=== PATIENT | male | born 1975 | race Caucasian/White ===

== ENCOUNTER 2017-01-24 13:30 | Emergency (ER) | payer BC, OTHER ==
[~2017-01-24] VITALS: Ht 175.3 cm; Wt 97.5 kg
[~2017-01-24 13:30] MED LIST: AMLO1CAP4 PO; ASP81CT PO; MECL-124 PO; MULT-963 PO; OMEP20TA2 PO; ONDAN4ODT PO; PIOG1TAB2 PO; SCOP1PAT TD
--- NOTE | 2017-01-24 13:45 | ED General ---
General Chief Complaint: Dizziness/Syncope Stated Complaint: DIZZINESS Source of Information: Patient, EMS Exam Limitations: No Limitations History of Present Illness Time Seen by Provider: 13:43 Initial Comments To ER per EMS from work with reports of dizziness. 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 States that he inspected and home at the [facility] then went back to his office. While his office looking at his computer screen he felt slightly dizzy. He then stood up and felt even dizzier. He then turned off the lights and lay on the floor in his office without improvement and persistent dizziness. He has a history of this and has taken scopolamine patches and meclizine orally in the past. He is dizzy all the time even at rest. He did have a headache this morning for which he took Tylenol Timing/Duration: 4-6 Hours Severity: Moderate Allergies and Home Medications Allergies Coded Allergies: No Known Drug Allergies (Unverified , 06/08/12) Home Medications Amlodipine Besylate/Benazepril 1 Cap Capsule, 1 EACH PO DAILY, (Reported) Aspirin 81 Mg Chew, 81 MG PO DAILY, (Reported) Meclizine Hcl 25 Mg Tab, 1-2 TAB PO Q 4-6 HOURS PRN, #30 FOR DIZZINESS Prescribed by: MARIE GONZALES on 06/09/1241 Multivitamin 1 Each Tablet, 1 EACH PO DAILY, (Reported) Omeprazole 20 Mg Tablet.dr, 20 MG PO DAILY, (Reported) Ondansetron Hcl 4 Mg Tab, 4 MG PO Q4H, #5 FOR NAUSEA AND VOMITING Prescribed by: MARIE GONZALES on 06/09/1241 Pioglitazone Hcl/Metformin Hcl 1 Each Tablet, 1 EACH PO DAILY, (Reported) Scopolamine Hcl 1 Patch .72 H Patch.td72, 1 EA TD Q3D, #3 FOR DIZZINESS Prescribed by: MARIE GONZALES on 06/09/1241 Constitutional: see HPI EENTM: see HPI Respiratory: no symptoms reported Cardiovascular: no symptoms reported Genitourinary: no symptoms reported Musculoskeletal: no symptoms reported Skin: no symptoms reported Psychiatric/Neurological: No Symptoms Reported Hematologic/Lymphatic: No Symptoms Reported Immunological/Allergic: no symptoms reported Past Wvybrbk-[id number] Hx Patient Social History Recent Foreign Travel: No Contact w/Someone Who Travel: No Immunizations Up To Date Date of Pneumonia Vaccine: May 25, 2010 Date of Influenza Vaccine: May 25, 2012 Physical Exam Vital Signs Vital Sign - Last 12Hours 01/24/17 13:30 Temp 98.3 Pulse 96 Resp 16 B/P (MAP) 127/73 Pulse Ox 99 O2 Delivery Room Air Capillary Refill : General Appearance: No Apparent Distress, WD/WN, Anxious Eyes: Bilateral Eye EOMI, Bilateral Eye Normal Inspection, Bilateral Eye PERRL HEENT: PERRL/EOMI, TMs Normal Neck: Full Range of Motion, Normal Inspection Respiratory: No Accessory Muscle Use, No Respiratory Distress Cardiovascular: Regular Rate, Rhythm, Normal Peripheral Pulses Gastrointestinal: Normal Bowel Sounds, Non Tender, Soft Extremity: Normal Capillary Refill, Normal Inspection Neurologic/Psychiatric: Alert, Oriented x3, No Motor/Sensory Deficits Skin: Normal Color, Warm/Dry Progress/Results/Core Measures Results/Orders Lab Results Laboratory Tests Test 01/24/17 13:50 Range/Units White Blood Count 7.7 4.3-11.0 10^3/uL Red Blood Count 5.02 4.35-5.85 10^6/uL Hemoglobin 15.5 13.3-17.7 G/DL Hematocrit 45 40-54 % Mean Corpuscular Volume 89 80-99 FL Mean Corpuscular Hemoglobin 31 25-34 PG Mean Corpuscular Hemoglobin Concent 35 32-36 G/DL Red Cell Distribution Width 12.1 10.0-14.5 % Platelet Count 254 130-400 10^3/uL Mean Platelet Volume 10.7 H 7.4-10.4 FL Neutrophils (%) (Auto) 63 42-75 % Lymphocytes (%) (Auto) 25 12-44 % Monocytes (%) (Auto) 10 0-12 % Eosinophils (%) (Auto) 1 0-10 % Basophils (%) (Auto) 0 0-10 % Neutrophils # (Auto) 4.9 1.8-7.8 X 10^3 Lymphocytes # (Auto) 1.9 1.0-4.0 X 10^3 Monocytes # (Auto) 0.8 0.0-1.0 X 10^3 Eosinophils # (Auto) 0.1 0.0-0.3 10^3/uL Basophils # (Auto) 0.0 0.0-0.1 10^3/uL Sodium Level 138 135-145 MMOL/L Potassium Level 4.2 3.6-5.0 MMOL/L Chloride Level 103 98-107 MMOL/L Carbon Dioxide Level 24 21-32 MMOL/L Anion Gap 11 5-14 MMOL/L Blood Urea Nitrogen 17 7-18 MG/DL Creatinine 0.91 0.60-1.30 MG/DL Estimat Glomerular Filtration Rate > 60 BUN/Creatinine Ratio 19 Glucose Level 146 H 70-105 MG/DL Calcium Level 9.4 8.5-10.1 MG/DL Total Bilirubin 1.0 0.1-1.0 MG/DL Aspartate Amino Transf (AST/SGOT) 33 5-34 U/L Alanine Aminotransferase (ALT/SGPT) 53 0-55 U/L Alkaline Phosphatase 36 L 40-136 U/L Total Protein 7.1 6.4-8.2 G/DL Albumin 4.2 3.2-4.5 G/DL My Orders Orders - CHASTITY TEIXEIRA APRN Ct Angio Head/Neck (01/24/17 13:39) Ekg Tracing (01/24/17 13:39) Cbc With Automated Diff (01/24/17 13:39) Comprehensive Metabolic Panel (01/24/17 13:39) Saline Lock/Iv-Start (01/24/17 13:39) Promethazine Injection (Phenergan Injec (01/24/17 13:45) Lorazepam Injection (Ativan Injection) (01/24/17 13:45) Meclizine Tablet (Antivert Tablet) (01/24/17 13:45) Iohexol Injection (Omnipaque 350 Mg/Ml 1 (01/24/17 14:30) Ns (Ivpb) (Sodium Chloride 0.9% Ivpb Bag (01/24/17 14:30) Medications Given in ED Current Medications Medications Dose Ordered Sig/Christin Route Start Time Stop Time Status Last Admin Dose Admin Iohexol 100 ml ONCE ONCE IV 01/24/17 14:30 01/24/17 14:31 DC 01/24/17 14:32 85 ML Lorazepam 0.5 mg ONCE ONCE IVP 01/24/17 13:45 01/24/17 13:46 DC 01/24/17 13:57 0.5 MG Meclizine HCl 25 mg ONCE ONCE PO 01/24/17 13:45 01/24/17 13:46 DC 01/24/17 13:57 25 MG Sodium Chloride 100 ml ONCE ONCE IV 01/24/17 14:30 01/24/17 14:31 DC 01/24/17 14:33 80 ML Vital Signs/I&O Vital Sign - Last 12Hours 01/24/17 13:30 Temp 98.3 Pulse 96 Resp 16 B/P (MAP) 127/73 Pulse Ox 99 O2 Delivery Room Air Departure Communication Progress Notes 1536-dizziness is still present but is much better. CT angiogram is negative. We will discharged home. Impression Impression: Primary Impression: Vertigo Disposition: HOME, SELF-CARE Condition: Stable Departure-Patient Inst. Decision time for Depature: 15:36 Referrals: ROSEMARIE UMANZOR MD, MARK D MD (PCP/Family) Primary Care Physician Patient Instructions: Vertigo (a Type of Dizziness) (DC) Add. Discharge Instructions: 1. Change positions slowly and expect to be dizzy with movement 2. Go home and rest 3. Call Dr. Umanzor on Friday morning to make an appointment to be seen All discharge instructions reviewed with patient and/or family. Voiced understanding. Scripts Promethazine HCl (Promethazine Tablet) 25 Mg Tablet 25 MG PO Q8H Y for NAUSEA/VOMITING, #10 TAB Prov: CHASTITY TEIXEIRA APRN 01/24/17 Scopolamine (Transderm-Scop) 1 Each Patch.td72 1 EACH TD q72 hours, #10 PATCH Prov: CHASTITY TEIXEIRA APRN 01/24/17 Meclizine HCl (Meclizine HCl) 25 Mg Tablet 25 MG PO TID Y for DIZZINESS, #10 TAB Prov: CHASTITY TEIXEIRA APRN 01/24/17 CHASTITY TEIXEIRA APRN Jan 24, 2017 13:45
[2017-01-24] MEDS: LORazepam INJ 2 MG/ML (ATIVAN) VIAL IVP ONE (13:57)
[2017-01-24] MEDS: MECLIZINE 25 MG (ANTIVERT) TAB PO ONE (13:57)
[2017-01-24 13:59] LABS: BASOPHILS % (AUTO) 0 % (0-10); EOSINOPHILS # (AUTO) 0.1 10^3/uL (0.0-0.3); EOSINOPHILS % (AUTO) 1 % (0-10); LYMPHOCYTES # (AUTO) 1.9 X 10^3 (1.0-4.0); LYMPHOCYTES % (AUTO) 25 % (12-44); MEAN CORPUSCULAR HEMOGLOBIN 31 PG (25-34); MEAN CORPUSCULAR HGB CONC 35 G/DL (32-36); MEAN CORPUSCULAR VOLUME 89 FL (80-99); MEAN PLATELET VOLUME 10.7 FL (7.4-10.4); MONOCYTES # (AUTO) 0.8 X 10^3 (0.0-1.0); MONOCYTES % (AUTO) 10 % (0-12); NEUTROPHILS # (AUTO) 4.9 X 10^3 (1.8-7.8); NEUTROPHILS % (AUTO) 63 % (42-75); PLATELET COUNT 254 10^3/uL (130-400); RED BLOOD COUNT 5.02 10^6/uL (4.35-5.85); RED CELL DISTRIBUTION WIDTH 12.1 % (10.0-14.5); WHITE BLOOD COUNT 7.7 10^3/uL (4.3-11.0)
[2017-01-24 14:29] LABS: ALANINE AMINOTRANSFERASE 53 U/L (0-55); ALBUMIN 4.2 G/DL (3.2-4.5); ANION GAP 11 MMOL/L (5-14); ASPARTATE AMINO TRANSFERASE 33 U/L (5-34); BLOOD UREA NITROGEN 17 MG/DL (7-18); BUN/CREATININE RATIO 19; CALCIUM 9.4 MG/DL (8.5-10.1); CARBON DIOXIDE 24 MMOL/L (21-32); CHLORIDE 103 MMOL/L (98-107); CREATININE SERUM 0.91 MG/DL (0.60-1.30); GFR ESTIMATED > 60; GLUCOSE 146 MG/DL (70-105); POTASSIUM 4.2 MMOL/L (3.6-5.0); SODIUM 138 MMOL/L (135-145); TOTAL PROTEIN 7.1 G/DL (6.4-8.2)
[2017-01-24] MEDS: IOHEXOL 350 MG/ML 100 ML (OMNIPAQUE 350) VIAL IV ONE (14:32)
[2017-01-24] MEDS: NS 100 ML (IVPB) BAG IV ONE (14:33)
--- NOTE | 2017-01-24 15:21 | Diagnostic Imaging Report ---
CLINICAL INDICATION: Patient with dizziness, vomiting x1 day. EXAMS: 1: Head CT with and without IV contrast. 2: CT angiogram of the head and neck performed with 100 cc of Omnipaque 350 IV contrast. Sagittal and coronal MIP reformations were created for better visualization of vascular anatomy. COMPARISON: Head CT without IV contrast dated 06/09/2012. FINDINGS: There is no evidence of acute cerebral infarct, intracranial hemorrhage, or gross mass effect. There is normal duarte-white matter distinction. The brain parenchymal volume appears appropriate for patient's age. There is no significant midline shift or herniation. There is no evidence of hydrocephalus. The basal cisterns are unremarkable. The skull, extracranial soft tissue, and orbits are unremarkable. The paranasal sinuses are unremarkable. CT angiogram: There is dense streak artifact seen across the shoulders which obscures the aortic arch, proximal great vessels, and subclavian arteries due to patient body habitus. There is dense contrast bolus within the left subclavian vein, left innominate vein, and superior vena cava which also contributes to streak artifact. Three-vessel aortic arch is seen. There is limited visualization of the origin and proximal bilateral CCA, origins and proximal bilateral cervical vertebral arteries, right brachiocephalic artery, and bilateral subclavian arteries. There is no gross abnormality in the visualized portions although these areas are partially visualized. The remainder of the cervical bilateral vertebral arteries are patent with relatively codominant bilateral vertebral arteries. The remainder of the visualized bilateral CCA, bilateral cervical ICA, and bilateral ECA are patent without significant stenosis, or dissection. The bilateral cavernous carotid arteries are patent. The bilateral anterior and posterior circulation of the visualized minto of Roman structures are patent with no evidence of significant stenosis, vascular malformation, dissection, or aneurysm. The visualized dural venous sinuses are patent and unremarkable. The visualized neck soft tissue structures are unremarkable. The visualized lung apices are clear. Cervical spine is unremarkable. IMPRESSION: 1: Unremarkable CT angiogram of the head and neck, as visualized. 2: Unremarkable CT scan of the brain. Dictated by: Dictated on workstation # [id number]
[2017-01-24] MEDS: PROMETHAZINE INJ 25 MG/ML (PHENERGAN) AMP IVP ONE (15:30)
[2017-01-24] MEDS ORDERED: SCOP1PAT TD (15:39)
[2017-01-24] MEDS ORDERED: PROM25TA14 PO (15:39)
[2017-01-24] MEDS ORDERED: MECL-106 PO (15:39)
[2017-01-24 15:50] VITALS: BP 121/66
== END 2017-01-24 15:50 | disposition home or self-care (01) ==
LOC: EDUNIT# 13:30 → ER 13:34
DX: R42 Dizziness and giddiness (principal); Z79.899 Other long term (current) drug therapy
CPT/HCPCS: 36415; 70496; 70498; 80053; 85025

== ENCOUNTER 2017-04-12 07:59 | Emergency (ER) | payer OTHER ==
[~2017-04-12] VITALS: Ht 175.3 cm; Wt 96.6 kg
[~2017-04-12 07:59] MED LIST changes: +MECL-106 PO; +PROM25TA14 PO
[2017-04-12] MEDS ORDERED: KETOROLAC 30 MG/ML VIAL IVP STA (08:16)
[2017-04-12] MEDS ORDERED: ONDANSETRON 4 MG/2 ML (SDV) Z0FRAN IVP ONE (08:30)
[2017-04-12] MEDS ORDERED: NS IV 1000 ML 1,000 ML ONE (08:33)
[2017-04-12 09:06] LABS: BASOPHILS % (AUTO) 0 % (0-10); EOSINOPHILS % (AUTO) 0 % (0-10); LYMPHOCYTES % (AUTO) 25 % (12-44); MEAN CORPUSCULAR HEMOGLOBIN 31 PG (25-34); MEAN CORPUSCULAR HGB CONC 34 G/DL (32-36); MEAN CORPUSCULAR VOLUME 90 FL (80-99); MEAN PLATELET VOLUME 11.3 FL (7.4-10.4); MONOCYTES # (AUTO) 1.1 X 10^3 (0.0-1.0); MONOCYTES % (AUTO) 13 % (0-12); NEUTROPHILS # (AUTO) 4.8 X 10^3 (1.8-7.8); NEUTROPHILS % (AUTO) 61 % (42-75); PLATELET COUNT 259 10^3/uL (130-400); RED BLOOD COUNT 5.34 10^6/uL (4.35-5.85); RED CELL DISTRIBUTION WIDTH 12.3 % (10.0-14.5); WHITE BLOOD COUNT 7.9 10^3/uL (4.3-11.0)
--- NOTE | 2017-04-12 09:06 | Diagnostic Imaging Report ---
INDICATION: Fever, head pain, vomiting. FINDINGS: The lungs are clear. The heart and vessels are normal. There is no effusion or pneumothorax. IMPRESSION: No acute appearing abnormality. Dictated by: Dictated on workstation # [id number]
[2017-04-12 09:09] LABS: BILIRUBIN,URINE NEGATIVE (NEGATIVE); KETONES,URINE NEGATIVE (NEGATIVE); LEUKOCYTE ESTERASE ,URINE NEGATIVE (NEGATIVE); NITRITE,URINE NEGATIVE (NEGATIVE); PH,URINE 6 (5-9); PROTEIN,URINE 1+ (NEGATIVE); UROBILINOGEN,URINE NORMAL (NORMAL)
--- NOTE | 2017-04-12 09:09 | ED General ---
General Chief Complaint: Fever-Adult/Adol Stated Complaint: HEADACHE,VOMITING,FEVER Nursing Triage Note: PT CO OF FEVER FOR A COUPLE DAYS, SWOLLEN TESTICLES SINCE FRIDAY. GENERALIZED FINE RASH ALL OVER. PT HAS MAST AT TIMES AND HAS VOMITED ONCE Nursing Sepsis Screen: Possible Sepsis Risk Source of Information: Patient Exam Limitations: No Limitations History of Present Illness Time Seen by Provider: 08:08 Initial Comments Here with report of fever intermittently over the last week and a half and waxing and waning generalized symptoms. Did develop a rash earlier this week that seems to be a little better but also developed some testicular swelling mid week that has not changed since onset. He was seen by his primary care provider a few days ago and laboratory studies were done that did not show any significant findings per the patient. Did have one episode of nausea and vomiting but no diarrhea. Complains of headache that is persisting but is better now after vomiting. Did have fever of 101 this morning and take Tylenol for that. Timing/Duration: 1 Week, Changing Over Time, Getting Worse Severity: Moderate Associated Systoms: No Chest Pain, No Cough, Fever/Chills, Headaches, Nausea/ Vomiting, No Shortness of Air, No Weakness Allergies and Home Medications Allergies Coded Allergies: No Known Drug Allergies (Unverified , 06/08/12) Home Medications Amlodipine Besylate/Benazepril 1 Cap Capsule, 1 EACH PO DAILY, (Reported) Aspirin 81 Mg Chew, 81 MG PO DAILY, (Reported) Meclizine HCl 25 Mg Tablet, 25 MG PO TID PRN for DIZZINESS, #10 Prescribed by: CHASTITY TEIXEIRA on 01/24/17 1539 Meclizine Hcl 25 Mg Tab, 1-2 TAB PO Q 4-6 HOURS PRN, #30 FOR DIZZINESS Prescribed by: MARIE GONZALES on 06/09/12 0042 Multivitamin 1 Each Tablet, 1 EACH PO DAILY, (Reported) Omeprazole 20 Mg Tablet.dr, 20 MG PO DAILY, (Reported) Ondansetron Hcl 4 Mg Tab, 4 MG PO Q4H, #5 FOR NAUSEA AND VOMITING Prescribed by: MARIE GONZALES on 06/09/12 0042 Pioglitazone Hcl/Metformin Hcl 1 Each Tablet, 1 EACH PO DAILY, (Reported) Promethazine HCl 25 Mg Tablet, 25 MG PO Q8H PRN for NAUSEA/VOMITING, #10 Prescribed by: CHASTITY TEIXEIRA on 01/24/17 1539 Scopolamine 1 Each Patch.td72, 1 EACH TD q72 hours, #10 Prescribed by: CHASTITY TEIXEIRA on 01/24/17 1539 Scopolamine Hcl 1 Patch .72 H Patch.td72, 1 EA TD Q3D, #3 FOR DIZZINESS Prescribed by: MARIE GONZALES on 06/09/12 0042 Constitutional: see HPI, No chills, No fever EENTM: no symptoms reported Respiratory: no symptoms reported Cardiovascular: no symptoms reported Gastrointestinal: see HPI, nausea, vomiting Genitourinary: see HPI, No dysuria, pain Musculoskeletal: no symptoms reported Skin: no symptoms reported Psychiatric/Neurological: See HPI, Headache, Denies Weakness All Other Systems Reviewed Negative Unless Noted: Yes Past Pvewvjy-Iuvots-Zbdwow Hx Patient Social History Alcohol Use: Denies Use Recreational Drug Use: No Smoking Status: Never a Smoker Recent Foreign Travel: No Contact w/Someone Who Travel: No Recent Infectious Disease Expo: No Recent Hopitalizations: No Immunizations Up To Date Date of Pneumonia Vaccine: May 25, 2010 Date of Influenza Vaccine: May 25, 2012 Surgeries HX Surgeries: No Respiratory Hx Respiratory Disorders: No Cardiovascular Hx Cardiac Disorders: Yes Cardiac Disorders: Hypertension Neurological Hx Neurological Disorders: No Genitourinary Hx Genitourinary Disorders: No Gastrointestinal Hx Gastrointestinal Disorders: No Musculoskeletal Hx Musculoskeletal Disorders: No Endocrine Hx Endocrine Disorders: Yes Endocrine Disorders: Diabetes, Non-Insulin dep Reviewed Nursing Assessment Reviewed/Agree w Nursing PMH: Yes Family Medical History Significant Family History: No Pertinent Family Hx Physical Exam-Suspected Sepsis Physical Exam Vital Signs Vital Sign - Last 12Hours 04/12/17 08:00 Temp 99.5 Pulse 96 Resp 18 B/P (MAP) 139/85 Pulse Ox 97 Capillary Refill : Less Than 3 Seconds Blood Pressure Mean: 103 General Appearance: No Apparent Distress, WD/WN HEENT: PERRL/EOMI, TMs Normal, Pharynx Normal Neck: Non Tender, Supple, Lymphadenopathy (L) (mild), Lymphadenopathy (R) (mild ) Respiratory: Lungs Clear, Normal Breath Sounds Cardiovascular: Regular Rate, Rhythm, Normal Peripheral Pulses Gastrointestinal: Non Tender, Soft Back: Normal Inspection, No CVA Tenderness, No Vertebral Tenderness Extremity: Normal Range of Motion, Non Tender Neurologic/Psychiatric: Alert, Oriented x3 Skin: normal color, warm/dry Focused Exam Evaluation Lactate Level Laboratory Tests 04/12/17 08:20: Lactic Acid Level 1.56 Lactic Acid Level Discussed Risk,Benefits: Yes Patient Consents: Yes Position: Lying, L3-4 Sterile Technique: Yes Opening Pressure: 19 Fluid Color: clear Size of Disposal Tray Used: Adult Other Comment: tolerated procedure well with no complications. Progress/Results/Core Measures Suspected Sepsis Recent Fever Within 48 Hours: Yes Infection Criteria Present: Suspected New Infection New/Unexplained Altered Menta: No Sepsis Screen: Possible Sepsis Risk Sepsis Diagnosis: SIRS Temperature:99.5 Pulse: 96 Respiratory Rate: 18 Laboratory Tests 04/12/17 08:40: White Blood Count 7.9 Blood Pressure 139 /85 Mean: 103 Laboratory Tests 04/12/17 08:20: Lactic Acid Level 1.56 Laboratory Tests 04/12/17 08:40: Creatinine 0.97, INR Comment 1.1, Platelet Count 259, Total Bilirubin 0.8 Results/Orders Lab Results Laboratory Tests Test 04/12/17 08:20 04/12/17 08:40 04/12/17 12:55 Range/Units Lactic Acid Level 1.56 0.50-2.00 MMOL/L White Blood Count 7.9 4.3-11.0 10^3/uL Red Blood Count 5.34 4.35-5.85 10^6/uL Hemoglobin 16.3 13.3-17.7 G/DL Hematocrit 48 40-54 % Mean Corpuscular Volume 90 80-99 FL Mean Corpuscular Hemoglobin 31 25-34 PG Mean Corpuscular Hemoglobin Concent 34 32-36 G/DL Red Cell Distribution Width 12.3 10.0-14.5 % Platelet Count 259 130-400 10^3/uL Mean Platelet Volume 11.3 H 7.4-10.4 FL Neutrophils (%) (Auto) 61 42-75 % Lymphocytes (%) (Auto) 25 12-44 % Monocytes (%) (Auto) 13 H 0-12 % Eosinophils (%) (Auto) 0 0-10 % Basophils (%) (Auto) 0 0-10 % Neutrophils # (Auto) 4.8 1.8-7.8 X 10^3 Lymphocytes # (Auto) 2.0 1.0-4.0 X 10^3 Monocytes # (Auto) 1.1 H 0.0-1.0 X 10^3 Eosinophils # (Auto) 0.0 0.0-0.3 10^3/uL Basophils # (Auto) 0.0 0.0-0.1 10^3/uL Prothrombin Time 14.2 12.2-14.7 SEC INR Comment 1.1 0.8-1.4 Activated Partial Thromboplast Time 29 24-35 SEC Urine Color YELLOW Urine Clarity CLEAR Urine pH 6 5-9 Urine Specific [place] 1.015 L 1.016-1.022 Urine Protein 1+ H NEGATIVE Urine Glucose (UA) NEGATIVE NEGATIVE Urine Ketones NEGATIVE NEGATIVE Urine Nitrite NEGATIVE NEGATIVE Urine Bilirubin NEGATIVE NEGATIVE Urine Urobilinogen NORMAL NORMAL MG/DL Urine Leukocyte Esterase NEGATIVE NEGATIVE Urine RBC (Auto) NEGATIVE NEGATIVE Urine RBC NONE /HPF Urine WBC RARE /HPF Urine Crystals NONE /LPF Urine Bacteria NEGATIVE /HPF Urine Casts NONE /LPF Urine Mucus MODERATE H /LPF Urine Culture Indicated NO Sodium Level 137 135-145 MMOL/L Potassium Level 4.7 3.6-5.0 MMOL/L Chloride Level 100 98-107 MMOL/L Carbon Dioxide Level 26 21-32 MMOL/L Anion Gap 11 5-14 MMOL/L Blood Urea Nitrogen 14 7-18 MG/DL Creatinine 0.97 0.60-1.30 MG/DL Estimat Glomerular Filtration Rate > 60 BUN/Creatinine Ratio 14 Glucose Level 164 H 70-105 MG/DL Calcium Level 9.5 8.5-10.1 MG/DL Total Bilirubin 0.8 0.1-1.0 MG/DL Aspartate Amino Transf (AST/SGOT) 28 5-34 U/L Alanine Aminotransferase (ALT/SGPT) 41 0-55 U/L Alkaline Phosphatase 39 L 40-136 U/L C-Reactive Protein High Sensitivity 2.71 H 0.00-0.50 MG/DL Total Protein 7.8 6.4-8.2 GM/DL Albumin 4.3 3.2-4.5 GM/DL Monoscreen NEGATIVE NEGATIVE CSF Tube Number 4 CSF Appearance CLEAR CSF Color COLORLESS CSF WBC 4 0-5 CELLS CSF RBC 12 H 0-0 CELLS CSF Lymphocytes % CSF Mononuclear WBCs % CSF Polynuclear WBCs % CSF Glucose 72 50-80 MG/DL CSF Total Protein 28 15-40 MG/DL My Orders Orders - ONEIDA KAY MD Cbc With Automated Diff (04/12/17 08:16) Comprehensive Metabolic Panel (04/12/17 08:16) Lactic Acid Analyzer (04/12/17 08:16) Blood Culture (04/12/17 08:16) Sputum Culture (04/12/17 08:16) Ua Culture If Indicated (04/12/17 08:16) Protime With Inr (04/12/17 08:16) Partial Thromboplastin Time (04/12/17 08:16) Chest 1 View, Ap/Pa Only (04/12/17 08:16) O2 (04/12/17 08:16) Saline Lock/Iv-Start (04/12/17 08:16) Vital Signs Adult Sepsis Patie Q1HR (04/12/17 08:16) Remove Rings In Anticipation O (04/12/17 08:16) Hs C Reactive Protein (04/12/17 08:16) Monotest (04/12/17 08:16) Tick Panel With Lyme Eia (04/12/17 08:16) Ondansetron Injection (Zofran Injectio (04/12/17 08:30) Ketorolac Injection (Toradol Injection) (04/12/17 08:16) Ns Iv 1000 Ml (Sodium Chloride 0.9%) (04/12/17 08:33) Ct Head Wo (04/12/17 09:27) Us Scrotum (Testicle) [id number] (04/12/17 09:48) Fentanyl Injection (Sublimaze Injection (04/12/17 10:42) Ns Iv 1000 Ml (Sodium Chloride 0.9%) (04/12/17 10:42) Csf Cell Count (04/12/17 13:03) Csf Glucose (04/12/17 13:03) Csf Total Protein (04/12/17 13:03) Csf Culture (04/12/17 13:03) Virus Culture (04/12/17 13:03) Hydrocodone/Apap 7.5/325 Tab (Lortab 7. (04/12/17 14:09) Medications Given in ED Current Medications Medications Dose Ordered Sig/Christin Route Start Time Stop Time Status Last Admin Dose Admin Ondansetron HCl 4 mg ONCE ONCE IVP 04/12/17 08:30 04/12/17 08:31 DC 04/12/17 08:45 4 MG Sodium Chloride 1,000 ml @ 0 mls/hr Q0M ONCE IV 04/12/17 10:42 04/12/17 10:43 DC 04/12/17 11:00 1,000 MLS/HR Sodium Chloride 1,000 ml @ STK-MED ONCE .ROUTE 04/12/17 08:33 04/12/17 08:40 DC 04/12/17 08:45 1,000 MLS/HR Vital Signs/I&O Vital Sign - Last 12Hours 04/12/17 08:00 Temp 99.5 Pulse 96 Resp 18 B/P (MAP) 139/85 Pulse Ox 97 Capillary Refill : Less Than 3 Seconds Blood Pressure Mean: 103 Progress Note : Progress Note Seen and evaluated. IV, labs, UA, chest x-ray, blood cultures and lactic acid ordered. Normal saline 1 L bolus, Zofran 4 mg IV and Toradol 30 mg IV ordered. Monitor patient. Fentanyl 50 g IV ordered. We did do ultrasound of the scrotum due to scrotal swelling as a potential source of infection including epididymitis. This was negative. CT head ordered in preparation for lumbar puncture due to headache and fever. 1300: CT negative. Consent signed and on chart for lumbar puncture after discussion of risk and benefits. Lumbar puncture performed and patient tolerated procedure well. See procedure note. Fluid sent for evaluation and culture both bacterial and viral. Monitor patient. 1415: Cell counts are negative. Patient doing better currently. Still has some headache. Hydrocodone 7.5 mg by mouth given. Discharged home with return precautions. Patient verbalize understanding instructions and agreement with plan. Diagnostic Imaging Diagonstic Imaging: Xray Plain Films/CT/US/NM/MRI: chest Comments VIA [facility]. [place], [place] NAME: SIDRA REILLY [facility] REC#: [id number] PT STATUS: REG ER : 1975 PHYSICIAN: ONEIDA KAY MD ADMIT DATE: 04/12/17/ER Draft Date of Exam:04/12/17 CHEST 1 VIEW, AP/PA ONLY INDICATION: Fever, head pain, vomiting. FINDINGS: The lungs are clear. The heart and vessels are normal. There is no effusion or pneumothorax. IMPRESSION: No acute appearing abnormality. Dictated on workstation # [id number] Dict: 04/12/17 0903 Trans: 04/12/17 0906 [facility] [id number] Interpreted by: MARSHA HAND Electronically signed by: Edilsonnseric Imaging: Ultrasound Plain Films/CT/US/NM/MRI: other (testicles) Comments VIA [place], [place] NAME: SIDRA REILLY [facility] REC#: [id number] PT STATUS: REG ER : 1975 PHYSICIAN: ONEIDA KAY MD ADMIT DATE: 04/12/17/ER Draft Date of Exam:04/12/17 US SCROTUM (Testicle) [id number] INDICATION: Right scrotal swelling. FINDINGS: Testicular parenchyma appeared unremarkable. There is normal color Doppler blood flow to both testicles, the epididymides appeared unremarkable. There are small to moderate bilateral hydroceles showing no complexity. No hernia identified. No demonstrated varicocele. IMPRESSION: Small to moderate simple bilateral hydroceles. Normal appearance of the testicles and epididymides. No evidence for torsion, orchitis or mass. Dictated on workstation # [id number] Dict: 04/12/17 1030 Trans: 04/12/17 1039 [facility] [id number] Interpreted by: MARSHA HAND Electronically signed by: Edilsonnstic Imaging: CT Plain Films/CT/US/NM/MRI: head Comments VIA [place], [place] NAME: SIDRA REILLY [facility] REC#: [id number] PT STATUS: REG ER : 1975 PHYSICIAN: ONEIDA KAY MD ADMIT DATE: 04/12/17/ER Draft Date of Exam:04/12/17 CT HEAD WO PROCEDURE: CT head without contrast. TECHNIQUE: Multiple contiguous axial images were obtained through the brain without the use of intravenous contrast. INDICATION: Severe head pain, vertigo symptoms of 3 days duration. Exam compared with 01/24/2017. There is no evidence for intracranial hemorrhage. There is no hydrocephalus. The CSF within the basilar cisterns and the ventricular system is nondilated and nondisplaced. There was no mass or mass effect and there were no findings of focal or generalized edema. The orbits, sinuses and calvarium as well as mastoids appear clear. IMPRESSION: Stable normal CT head. Dictated on workstation # [id number] Dict: 04/12/17 1050 Trans: 04/12/[address] [facility] [id number] Interpreted by: MARSHA HAND Electronically signed by: Departure Impression Impression: Primary Impression: Fever Qualified Codes: R50.9 - Fever, unspecified Additional Impressions: Headache Qualified Codes: R51 - Headache Vomiting Qualified Codes: R11.11 - Vomiting without nausea Disposition: 01 HOME, SELF-CARE Condition: Improved Departure-Patient Inst. Decision time for Depature: 14:24 Referrals: TAYA CALIX MD (PCP/Family) Primary Care Physician Patient Instructions: Fever, Adult (DC), Headache, Adult (DC), Lumbar Puncture (DC), Nausea and Vomiting, Adult (DC) Add. Discharge Instructions: All discharge instructions reviewed with patient and/or family. Voiced understanding. Clear liquid diet for 24 hours and then advance as tolerated. Take medications as directed. Follow up with your Dr. in a few days for recheck. Return for worse pain, fever, vomiting, weakness, breathing problems or other concerns as needed. Scripts Ondansetron (Ondansetron Odt) 4 Mg Tab.rapdis 4 MG PO Q6H Y for NAUSEA/VOMITING, #8 TAB 0 Refills Prov: ONEIDA KAY MD 04/12/17 Hydrocodone/Acetaminophen (Hydrocodon-Acetaminoph 7.5-325) 1 Each Tablet 1 EACH PO Q6H, #10 TAB 0 Refills Prov: ONEIDA KAY MD 04/12/17 Doxycycline Hyclate (Doxycycline Hyclate) 100 Mg Tablet 100 MG PO BID, #20 TAB 0 Refills Prov: ONEIDA KAY MD 04/12/17 Copy Copies To 1: TAYA CALIX MD, TIMOTHY D MD Apr 12, 2017 09:09
[2017-04-12 09:17] LABS: INR 1.1 (0.8-1.4); PROTHROMBIN TIME PATIENT 14.2 SEC (12.2-14.7)
[2017-04-12 09:25] LABS: ALANINE AMINOTRANSFERASE 41 U/L (0-55); ALBUMIN 4.3 GM/DL (3.2-4.5); ANION GAP 11 MMOL/L (5-14); ASPARTATE AMINO TRANSFERASE 28 U/L (5-34); BILIRUBIN,TOTAL 0.8 MG/DL (0.1-1.0); BLOOD UREA NITROGEN 14 MG/DL (7-18); BUN/CREATININE RATIO 14; CALCIUM 9.5 MG/DL (8.5-10.1); CARBON DIOXIDE 26 MMOL/L (21-32); CHLORIDE 100 MMOL/L (98-107); CREATININE SERUM 0.97 MG/DL (0.60-1.30); GFR ESTIMATED > 60; GLUCOSE 164 MG/DL (70-105); POTASSIUM 4.7 MMOL/L (3.6-5.0); SODIUM 137 MMOL/L (135-145); TOTAL PROTEIN 7.8 GM/DL (6.4-8.2); hs C REACTIVE PROTEIN 2.71 MG/DL (0.00-0.50)
[2017-04-12 09:32] LABS: WBC,URINE RARE /HPF
--- NOTE | 2017-04-12 10:40 | Diagnostic Imaging Report ---
INDICATION: Right scrotal swelling. FINDINGS: Testicular parenchyma appeared unremarkable. There is normal color Doppler blood flow to both testicles, the epididymides appeared unremarkable. There are small to moderate bilateral hydroceles showing no complexity. No hernia identified. No demonstrated varicocele. IMPRESSION: Small to moderate simple bilateral hydroceles. Normal appearance of the testicles and epididymides. No evidence for torsion, orchitis or mass. Dictated by: Dictated on workstation # [id number]
[2017-04-12] MEDS ORDERED: fentaNYL INJECTION 100 MCG/2 ML AMP IVP STA (10:42)
[2017-04-12] MEDS ORDERED: NS IV 1000 ML 1,000 ML IV ONE (10:42)
--- NOTE | 2017-04-12 10:56 | Diagnostic Imaging Report ---
PROCEDURE: CT head without contrast. TECHNIQUE: Multiple contiguous axial images were obtained through the brain without the use of intravenous contrast. INDICATION: Severe head pain, vertigo symptoms of 3 days duration. Exam compared with 01/24/2017. There is no evidence for intracranial hemorrhage. There is no hydrocephalus. The CSF within the basilar cisterns and the ventricular system is nondilated and nondisplaced. There was no mass or mass effect and there were no findings of focal or generalized edema. The orbits, sinuses and calvarium as well as mastoids appear clear. IMPRESSION: Stable normal CT head. Dictated by: Dictated on workstation # [id number]
[2017-04-12 13:31] LABS: APPEARANCE,CSF CLEAR; COLOR,CSF COLORLESS; WHITE BLOOD CELL,CSF 4 CELLS (0-5)
[2017-04-12 13:35] LABS: CSF GLUCOSE 72 MG/DL (50-80); CSF TOTAL PROTEIN 28 MG/DL (15-40)
[2017-04-12] MEDS ORDERED: HYDROcodone/APAP 7.5 MG/325 MG (LORTAB, LORCET PLUS) TABLET PO STA (14:09)
[2017-04-12] MEDS ORDERED: DOXY100T2 PO (14:25)
[2017-04-12] MEDS ORDERED: ONDA4TAB11 PO (14:25)
[2017-04-12] MEDS ORDERED: HYDR-3816 PO (14:25)
[2017-04-12 14:39] VITALS: BP 122/68
[2017-04-14 13:50] LABS: EHRLICHIA CHAFFEENSIS G ABY <1:16 (<1:16)
[2017-04-14 15:16] LABS: LYME AB G M 0.11 Index (0.00-0.89)
[2017-04-14 15:41] LABS: IGG ROCKY MOUNTAIN SPOTTED FEV <1:16 (<1:16); IGM ROCKY MOUNTAIN SPOTTED FEV <1:10 (<1:10); LYME AB INTERP Negative (Negative)
[2017-04-15 10:55] LABS: TULAREMIA ANTIBODY <1:20
== END 2017-04-12 14:39 | disposition home or self-care (01) ==
LOC: EDUNIT# 07:59 → ER 08:01
DX: R51 Headache (principal); R50.9 Fever, unspecified; R11.10 Vomiting, unspecified; E11.9 Type 2 diabetes mellitus without complications; I10 Essential (primary) hypertension; Z79.82 Long term (current) use of aspirin
CPT/HCPCS: 36415; 70450; 71010; 76870; 80053; 81000; 82945; 83605; 84157; 85025; 85610; 85730; 86141; 86308; 86618; 86666; 86668; 86757; 87040; 87070; 87205; 87252; 89051; 96361; 96374; 96375

== ENCOUNTER 2017-04-13 21:59 | Inpatient (IN) | payer OTHER ==
[~2017-04-13] VITALS: Ht 175.3 cm; Wt 96.2 kg
[~2017-04-13 21:59] MED LIST changes: +DOXY100T2 PO; +HYDR-3816 PO; +ONDA4TAB11 PO
[2017-04-13] MEDS ORDERED: KETOROLAC 30 MG/ML VIAL IVP STA (22:22)
[2017-04-13] MEDS ORDERED: LACTATED RINGERS 1,000 ML IV ONE (22:22)
[2017-04-13] MEDS ORDERED: ONDANSETRON 4 MG/2 ML (SDV) Z0FRAN IVP PRN (22:30)
--- NOTE | 2017-04-13 22:32 | ED General ---
General Chief Complaint: Fever-Adult/Adol Stated Complaint: FEVER VOMITING Nursing Triage Note: Patient reports being evaluated yesterday. patient reports fever with n/v. unable to keep medication or liquid down Nursing Sepsis Screen: No Definite Risk Source of Information: Patient, Spouse Exam Limitations: No Limitations History of Present Illness Time Seen by Provider: 22:19 Initial Comments Patient presents to ER by private conveyance with a chief complaint of severe headache, fever chills nausea vomiting and inability to tolerate the antibiotics , nausea medicine or pain medicine he was given. He was seen yesterday in a few days earlier in the ER for this same complaint. He was also seen by Dr. Gutierres of last week approximately 4 days ago in the clinic and lab at that time was normal. It was felt that he probably had a bad virus. He says approximately 2 weeks ago he started having chills and body aches and thought he was getting a cold. No cough but some headache. Approximately a week later he started having a rash that was red nonraised in all over his body including his palms and the back of his hands. Mildly itchy. He states he had one tick on him for less than 24 hours back in January but no rash. When he started having headaches and nausea and vomiting best when he came to the ER. He was stabilized lab was done as well as blood cultures and a spinal tap which had normal cytology. He was started on oral doxycycline and take titers were sent for. He came back today because he is unable to tolerate fluid intake, or keep his meds down despite Zofran ODT. He feels very dehydrated with body aches, headache and fever Tmax today of 102.5F. He says he gets a headache you lies down or gets nauseated if he sits up. Allergies and Home Medications Allergies Coded Allergies: No Known Drug Allergies (Unverified , 06/08/12) Home Medications Amlodipine Besylate/Benazepril 1 Cap Capsule, 1 EACH PO DAILY, (Reported) Aspirin 81 Mg Chew, 81 MG PO DAILY, (Reported) Doxycycline Hyclate 100 Mg Tablet, 100 MG PO BID, #20 Ref 0 Prescribed by: ONEIDA KAY on 04/12/17 1425 Hydrocodone/Acetaminophen 1 Each Tablet, 1 EACH PO Q6H, #10 Ref 0 Prescribed by: ONEIDA KAY on 04/12/17 1425 Meclizine Hcl 25 Mg Tab, 1-2 TAB PO Q 4-6 HOURS PRN, #30 FOR DIZZINESS Prescribed by: MARIE GONZALES on 06/09/1241 Multivitamin 1 Each Tablet, 1 EACH PO DAILY, (Reported) Omeprazole 20 Mg Tablet.dr, 20 MG PO DAILY, (Reported) Ondansetron Hcl 4 Mg Tab, 4 MG PO Q4H, #5 FOR NAUSEA AND VOMITING Prescribed by: MARIE GONZALES on 06/09/12 004 Pioglitazone Hcl/Metformin Hcl 1 Each Tablet, 1 EACH PO DAILY, (Reported) Promethazine HCl 25 Mg Tablet, 25 MG PO Q8H PRN for NAUSEA/VOMITING, #10 Prescribed by: CHASTITY TEIXEIRA on 01/24/17 1539 Scopolamine Hcl 1 Patch .72 H Patch.td72, 1 EA TD Q3D, #3 FOR DIZZINESS Prescribed by: MARIE GONZALES on 06/09/1241 Constitutional: see HPI, chills, diaphoresis, fever, malaise EENTM: ear pain, No ear discharge, No hearing loss, No blurred vision, No double vision, No eye pain Respiratory: No cough, No short of breath, No wheezing Cardiovascular: No chest pain, No Hx of Intervention, No palpitations Gastrointestinal: No constipation, No diarrhea, nausea, vomiting Genitourinary: No discharge, No dysuria Musculoskeletal: No back pain, No joint pain, No joint swelling Skin: No pruritus, No rash Psychiatric/Neurological: Headache, Denies Numbness, Denies Paresthesia Hematologic/Lymphatic: Denies Easy Bleeding, Denies Easy Bruising Past Uuyqkrz-Fulgzd-Ffwkew Hx Patient Social History Alcohol Use: Denies Use Recreational Drug Use: No Smoking Status: Never a Smoker Recent Foreign Travel: No Contact w/Someone Who Travel: No Recent Infectious Disease Expo: No Recent Hopitalizations: No Immunizations Up To Date Date of Pneumonia Vaccine: May 25, 2010 Date of Influenza Vaccine: May 25, 2012 Surgeries HX Surgeries: No Respiratory Hx Respiratory Disorders: No Cardiovascular Hx Cardiac Disorders: Yes Cardiac Disorders: Hypertension Neurological Hx Neurological Disorders: No Genitourinary Hx Genitourinary Disorders: No Gastrointestinal Hx Gastrointestinal Disorders: No Musculoskeletal Hx Musculoskeletal Disorders: No Endocrine Hx Endocrine Disorders: Yes Endocrine Disorders: Diabetes, Non-Insulin dep Family Medical History Significant Family History: No Pertinent Family Hx Physical Exam-Suspected Sepsis Physical Exam Vital Signs Vital Sign - Last 12Hours 04/13/17 04/14/17 22:09 00:09 Temp 102.1 Pulse 96 Resp 24 B/P (MAP) 141/81 Pulse Ox 97 O2 Delivery Room Air Capillary Refill : Less Than 3 Seconds Blood Pressure Mean: 101 General Appearance: WD/WN, Mild Distress Eyes: Bilateral Eye Normal Inspection, Bilateral Eye PERRL, Bilateral Eye EOMI HEENT: PERRL/EOMI, Normal ENT Inspection, Pharynx Normal, Other (bilateral otitis media effusion without erythema or swelling of the canals.) Neck: Full Range of Motion, Normal Inspection, Non Tender, Supple Respiratory: Chest Non Tender, Lungs Clear, Normal Breath Sounds, No Accessory Muscle Use Cardiovascular: Regular Rate, Rhythm, No Edema, No Gallop Gastrointestinal: Normal Bowel Sounds, No Organomegaly, No Pulsatile Mass, Non Tender, Soft Back: Normal Inspection, No CVA Tenderness, No Vertebral Tenderness Extremity: Normal Capillary Refill, Normal Inspection, Non Tender, No Calf Tenderness, No Pedal Edema Neurologic/Psychiatric: Alert, Oriented x3, No Motor/Sensory Deficits, Normal 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, 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 Norm as Tested Reflexes: 2+ Knee (R), 2+ Knee (L) Skin: normal color, warm/dry Lymphatic: No Adenopathy Focused Exam Evaluation Sepsis Stage: Sepsis Possible Source: Meningitis Lactate Level Laboratory Tests 04/13/17 22:35: Lactic Acid Level 1.98 Lactic Acid Level Laboratory Tests Test 04/13/17 22:35 Lactic Acid Level 1.98 MMOL/L (0.50-2.00) Progress/Results/Core Measures Suspected Sepsis Recent Fever Within 48 Hours: No Infection Criteria Present: None New/Unexplained Altered Menta: No Sepsis Screen: No Definite Risk Sepsis Diagnosis: SIRS Temperature:102.1 Pulse: 96 Respiratory Rate: 24 Laboratory Tests 04/13/17 22:35: White Blood Count 6.9 Blood Pressure 141 /81 Mean: 101 Laboratory Tests 04/13/17 22:35: Lactic Acid Level 1.98 Laboratory Tests 04/13/17 22:35: Creatinine 1.11, INR Comment 1.0, Platelet Count 324, Total Bilirubin 1.0 Results/Orders Lab Results Laboratory Tests Test 04/13/17 22:35 04/13/17 23:59 Range/Units White Blood Count 6.9 4.3-11.0 10^3/uL Red Blood Count 5.18 4.35-5.85 10^6/uL Hemoglobin 15.7 13.3-17.7 G/DL Hematocrit 46 40-54 % Mean Corpuscular Volume 88 80-99 FL Mean Corpuscular Hemoglobin 30 25-34 PG Mean Corpuscular Hemoglobin Concent 35 32-36 G/DL Red Cell Distribution Width 12.0 10.0-14.5 % Platelet Count 324 130-400 10^3/uL Mean Platelet Volume 10.3 7.4-10.4 FL Neutrophils (%) (Auto) 62 42-75 % Lymphocytes (%) (Auto) 27 12-44 % Monocytes (%) (Auto) 11 0-12 % Eosinophils (%) (Auto) 0 0-10 % Basophils (%) (Auto) 1 0-10 % Neutrophils # (Auto) 4.3 1.8-7.8 X 10^3 Lymphocytes # (Auto) 1.9 1.0-4.0 X 10^3 Monocytes # (Auto) 0.7 0.0-1.0 X 10^3 Eosinophils # (Auto) 0.0 0.0-0.3 10^3/uL Basophils # (Auto) 0.0 0.0-0.1 10^3/uL Prothrombin Time 13.6 12.2-14.7 SEC INR Comment 1.0 0.8-1.4 Activated Partial Thromboplast Time 30 24-35 SEC Sodium Level 137 135-145 MMOL/L Potassium Level 3.7 3.6-5.0 MMOL/L Chloride Level 103 98-107 MMOL/L Carbon Dioxide Level 21 21-32 MMOL/L Anion Gap 13 5-14 MMOL/L Blood Urea Nitrogen 12 7-18 MG/DL Creatinine 1.11 0.60-1.30 MG/DL Estimat Glomerular Filtration Rate > 60 BUN/Creatinine Ratio 11 Glucose Level 174 H 70-105 MG/DL Lactic Acid Level 1.98 0.50-2.00 MMOL/L Calcium Level 9.5 8.5-10.1 MG/DL Total Bilirubin 1.0 0.1-1.0 MG/DL Aspartate Amino Transf (AST/SGOT) 33 5-34 U/L Alanine Aminotransferase (ALT/SGPT) 40 0-55 U/L Alkaline Phosphatase 32 L 40-136 U/L Total Protein 7.3 6.4-8.2 GM/DL Albumin 4.1 3.2-4.5 GM/DL Urine Color YELLOW Urine Clarity CLEAR Urine pH 6 5-9 Urine Specific [place] 1.010 L 1.016-1.022 Urine Protein 1+ H NEGATIVE Urine Glucose (UA) NEGATIVE NEGATIVE Urine Ketones 3+ H NEGATIVE Urine Nitrite NEGATIVE NEGATIVE Urine Bilirubin NEGATIVE NEGATIVE Urine Urobilinogen NORMAL NORMAL MG/DL Urine Leukocyte Esterase NEGATIVE NEGATIVE Urine RBC (Auto) NEGATIVE NEGATIVE Urine RBC NONE /HPF Urine WBC NONE /HPF Urine Squamous Epithelial Cells RARE /HPF Urine Crystals NONE /LPF Urine Bacteria TRACE /HPF Urine Casts NONE /LPF Urine Mucus MODERATE H /LPF Urine Culture Indicated NO My Orders Orders - JOHNATHAN YUSUF Cbc With Automated Diff (04/13/17 22:22) Comprehensive Metabolic Panel (04/13/17 22:22) Lactic Acid Analyzer (04/13/17 22:22) Blood Culture (04/13/17 22:22) Sputum Culture (04/13/17 22:22) Ua Culture If Indicated (04/13/17 22:22) Protime With Inr (04/13/17 22:22) Partial Thromboplastin Time (04/13/17 22:22) Chest 1 View, Ap/Pa Only (04/13/17 22:22) O2 (04/13/17 22:22) Ondansetron Injection (Zofran Injectio (04/13/17 22:30) Saline Lock/Iv-Start (04/13/17 22:22) Saline Lock/Iv-Start (04/13/17 22:22) Vital Signs Adult Sepsis Patie Q1HR (04/13/17 22:22) Remove Rings In Anticipation O (04/13/17 22:22) Ketorolac Injection (Toradol Injection) (04/13/17 22:22) Saline Lock/Iv-Start (04/13/17 22:22) Lactated Ringers (Lr 1000 Ml Iv Solution (04/13/17 22:22) Ns Iv 1000 Ml (Sodium Chloride 0.9%) (04/14/17 00:43) Medications Given in ED Current Medications Medications Dose Ordered Sig/Christin Route Start Time Stop Time Status Last Admin Dose Admin Lactated Ringer's 1,000 ml @ 0 mls/hr Q0M ONCE IV 04/13/17 22:22 04/13/17 22:25 DC 04/13/17 22:39 0 MLS/HR Ondansetron HCl 4 mg ONCE PRN IVP 04/13/17 22:30 04/13/17 22:39 DC 04/13/17 22:37 4 MG Sodium Chloride 1,000 ml @ 0 mls/hr Q0M ONCE IV 04/14/17 00:43 04/14/17 00:46 DC 04/14/17 01:01 0 MLS/HR Vital Signs/I&O Vital Sign - Last 12Hours 04/13/17 04/14/17 04/14/17 22:09 00:09 01:13 Temp 102.1 101.1 100.0 Pulse 96 88 95 Resp 24 20 18 B/P (MAP) 141/81 129/77 Pulse Ox 97 97 O2 Delivery Room Air Capillary Refill : Less Than 3 Seconds Blood Pressure Mean: 101 Progress Note : Time: 22:33 Progress Note Please note had a fever but none of the cultures or CSF cultures aren't back yet. He is unable to tolerate outpatient by mouth medication so be reasonable to hold him on observation give him IV fluids and Zofran. We'll go ahead and continue the doxycycline and consult with inpatient team. We should have blood culture results by tomorrow preliminary at least. It's possible this represents a viral meningitis given his normal looking CT and cytology but his fever, headache, and prolonged course. Diagnostic Imaging Diagonstic Imaging: Xray Plain Films/CT/US/NM/MRI: chest Comments No acute cardiopulmonary processes noted. Compared to yesterday. Reviewed: Reviewed by Me Departure Communication Time/Spoke to Admitting Phy: 00:41 Communication Discussed the case with Dr. Chan and she is okay with keeping the patient will see the patient the morning and follow his blood and CSF cultures. Impression Impression: Primary Impression: Intractable nausea and vomiting Qualified Codes: R11.2 - Nausea with vomiting, unspecified Additional Impressions: Dehydration Fever Qualified Codes: R50.9 - Fever, unspecified Headache Qualified Codes: R51 - Headache Disposition: ADMITTED INPATIENT (obs) Condition: Stable Admissions Decision to Admit Reason: Admit from ER (General) Decision to Admit/Date: Apr 14, 2017 Time/Decision to Admit Time: 00:41 Departure-Patient Inst. Referrals: TAYA GUTIERRES MD (PCP/Family) Primary Care Physician Copy Copies To 1: TAYA GUTIERRES MD, TITUS J Apr 13, 2017 22:32
[2017-04-13 22:42] LABS: BASOPHILS % (AUTO) 1 % (0-10); EOSINOPHILS % (AUTO) 0 % (0-10); LYMPHOCYTES # (AUTO) 1.9 X 10^3 (1.0-4.0); LYMPHOCYTES % (AUTO) 27 % (12-44); MEAN CORPUSCULAR HEMOGLOBIN 30 PG (25-34); MEAN CORPUSCULAR HGB CONC 35 G/DL (32-36); MEAN CORPUSCULAR VOLUME 88 FL (80-99); MEAN PLATELET VOLUME 10.3 FL (7.4-10.4); MONOCYTES # (AUTO) 0.7 X 10^3 (0.0-1.0); MONOCYTES % (AUTO) 11 % (0-12); NEUTROPHILS # (AUTO) 4.3 X 10^3 (1.8-7.8); NEUTROPHILS % (AUTO) 62 % (42-75); PLATELET COUNT 324 10^3/uL (130-400); RED BLOOD COUNT 5.18 10^6/uL (4.35-5.85); WHITE BLOOD COUNT 6.9 10^3/uL (4.3-11.0)
[2017-04-13 22:58] LABS: PROTHROMBIN TIME PATIENT 13.6 SEC (12.2-14.7)
[2017-04-13 23:04] LABS: ALANINE AMINOTRANSFERASE 40 U/L (0-55); ALBUMIN 4.1 GM/DL (3.2-4.5); ANION GAP 13 MMOL/L (5-14); ASPARTATE AMINO TRANSFERASE 33 U/L (5-34); BLOOD UREA NITROGEN 12 MG/DL (7-18); BUN/CREATININE RATIO 11; CALCIUM 9.5 MG/DL (8.5-10.1); CARBON DIOXIDE 21 MMOL/L (21-32); CHLORIDE 103 MMOL/L (98-107); CREATININE SERUM 1.11 MG/DL (0.60-1.30); GFR ESTIMATED > 60; GLUCOSE 174 MG/DL (70-105); POTASSIUM 3.7 MMOL/L (3.6-5.0); SODIUM 137 MMOL/L (135-145); TOTAL PROTEIN 7.3 GM/DL (6.4-8.2)
[2017-04-14 00:11] LABS: BILIRUBIN,URINE NEGATIVE (NEGATIVE); KETONES,URINE 3+ (NEGATIVE); LEUKOCYTE ESTERASE ,URINE NEGATIVE (NEGATIVE); NITRITE,URINE NEGATIVE (NEGATIVE); PH,URINE 6 (5-9); PROTEIN,URINE 1+ (NEGATIVE); UROBILINOGEN,URINE NORMAL (NORMAL)
[2017-04-14 00:19] LABS: SQUAMOUS EPITHELIAL CELL,UR RARE /HPF
[2017-04-14] MEDS ORDERED: NS IV 1000 ML 1,000 ML IV ONE (00:43)
[2017-04-14] MEDS: ONDANSETRON 4 MG/2 ML (SDV) Z0FRAN IV PRN ×3 (02:01→18:04)
[2017-04-14] MEDS: ACETAMINOPHEN 500 MG TAB (TYLENOL) PO PRN ×3 (02:01→18:05)
[2017-04-14] MEDS: NS IV 1000 ML 1,000 ML IV SCH ×4 (02:02→21:05)
[2017-04-14 03:45] VITALS: BP 127/65
[2017-04-14] MEDS: KETOROLAC 15 MG/ML VIAL IV PRN ×4 (03:45→22:05)
[2017-04-14 06:19] LABS: BASOPHILS % (AUTO) 0 % (0-10); EOSINOPHILS % (AUTO) 0 % (0-10); LYMPHOCYTES # (AUTO) 2.1 X 10^3 (1.0-4.0); LYMPHOCYTES % (AUTO) 26 % (12-44); MEAN CORPUSCULAR HGB CONC 34 G/DL (32-36); MEAN CORPUSCULAR VOLUME 89 FL (80-99); MEAN PLATELET VOLUME 9.7 FL (7.4-10.4); MONOCYTES % (AUTO) 13 % (0-12); NEUTROPHILS # (AUTO) 4.8 X 10^3 (1.8-7.8); NEUTROPHILS % (AUTO) 61 % (42-75)
[2017-04-14 06:48] LABS: RED BLOOD COUNT 4.57 10^6/uL (4.35-5.85); WHITE BLOOD COUNT 8.7 10^3/uL (4.3-11.0)
[2017-04-14 06:49] LABS: MEAN CORPUSCULAR HEMOGLOBIN 30 PG (25-34); PLATELET COUNT 232 10^3/uL (130-400)
[2017-04-14 06:56] LABS: ANION GAP 10 MMOL/L (5-14); BLOOD UREA NITROGEN 12 MG/DL (7-18); BUN/CREATININE RATIO 13; CALCIUM 8.4 MG/DL (8.5-10.1); CARBON DIOXIDE 22 MMOL/L (21-32); CHLORIDE 107 MMOL/L (98-107); CREATININE SERUM 0.94 MG/DL (0.60-1.30); GFR ESTIMATED > 60; GLUCOSE 124 MG/DL (70-105); POTASSIUM 3.9 MMOL/L (3.6-5.0); SODIUM 139 MMOL/L (135-145)
--- NOTE | 2017-04-14 07:24 | Diagnostic Imaging Report ---
CLINICAL INDICATION: Patient with fever, headache and vomiting x2 weeks. EXAM: Portable chest x-ray upright view. COMPARISONS: Chest x-ray dated 04/12/2017. FINDINGS: Lungs/pleura: Lungs are clear. There is no pneumothorax. There is no pleural effusion. Mediastinum: Unremarkable. Pulmonary vasculature: Unremarkable. Heart: Unremarkable. Bones/extrathoracic soft tissue: Unremarkable. IMPRESSION: There is no radiographic evidence of acute cardiopulmonary process. Dictated by: Dictated on workstation # [id number]
[2017-04-14 07:36] VITALS: BP 135/79
[2017-04-14] MEDS ORDERED: DOXY100T2 PO (08:47)
[2017-04-14] MEDS ORDERED: SIMV20TA3 PO (08:47)
[2017-04-14] MEDS ORDERED: AMLO1CAP8 PO (08:47)
[2017-04-14] MEDS ORDERED: PROM25TA14 PO (08:47)
[2017-04-14] MEDS ORDERED: ASCO10006 PO (08:47)
[2017-04-14] MEDS ORDERED: ONDA4TAB8 PO (08:47)
[2017-04-14] MEDS ORDERED: MECL-106 PO (08:47)
[2017-04-14] MEDS ORDERED: OMG1KC PO ×2 (08:47)
[2017-04-14] MEDS ORDERED: SCOP1PAT TD (08:47)
[2017-04-14] MEDS ORDERED: HYDR-3816 PO (08:47)
[2017-04-14] MEDS ORDERED: ASPI-983 PO (08:47)
[2017-04-14 12:43] VITALS: BP 130/77
[2017-04-14 16:00] VITALS: BP 147/79
--- NOTE | 2017-04-14 16:08 | History & Physical-Hospitalist ---
HPI History of Present Illness: HPI/Chief Complaint The patient is a 42-year-old white male who was admitted early this morning after he presented to the emergency room with complaints of fever and headache. This illness apparently began 2 weeks ago today. Initial symptoms were that of aching all over, general malaise and loss of appetite. He denied any fever or chills initially. On or Friday of that week he developed a fine rash at first on his face and neck and then more universally. He saw Dr. Gutierres at the office on 04/10. Exam and laboratory were basically normal. He reports that by Friday he began to run a fever and had developed a headache and nausea. This continued and in the network coordinator hours of today he presented to the emergency room with a fever of 102+. In addition he continued to have a headache. He noted some change in the headache with increase in sitting and standing. Date Seen 04/14/17 Time Seen by Provider: 16:03 Attending Physician Zainab Chan MD PCP Devan Gutierres MD Referring Physician Date of Admission Apr 14, 2017 at 00:45 Home Medications & Allergies Home Medications Reviewed patient Home Medication Reconciliation Form Allergies Allergies Coded Allergies No Known Drug Allergies ([id number]/15/12) Past Gbvwpfr-Sgmuxl-Rpdrki Hx Patient Social History Alcohol Use: Denies Use Recreational Drug Use: No Smoking Status: Never a Smoker Physical Abuse Screen: No Sexual Abuse: No Recent Foreign Travel: No Contact w/other who traveled: No Recent Hopitalizations: No Recent Infectious Disease Expo: No Immunizations Up To Date Date of Pneumonia Vaccine: May 25, 2010 Date of Influenza Vaccine: May 25, 2012 Seasonal Allergies Seasonal Allergies: No Surgeries No Respiratory No Cardiovascular Yes Hypertension Neurological Yes Genitourinary No Gastrointestinal No Musculoskeletal No Endocrine History of Endocrine Disorders: Yes Endocrine Disorders: Diabetes, Non-Insulin dep HEENT History of HEENT Disorders: No Cancer No Psychosocial History of Psychiatric Problem: No Integumentary History of Skin or Integumenta: No Family Medical History Significant Family History: No Pertinent Family Hx Review of Systems Constitutional: see HPI EENTM: no symptoms reported Respiratory: no symptoms reported Cardiovascular: no symptoms reported Gastrointestinal: loss of appetite, nausea, vomiting Genitourinary: other (testicular pain last week) Musculoskeletal: muscle pain, muscle stiffness Skin: rash Psychiatric/Neurological: Weakness Physical Exam Physical Exam Vital Signs Vital Sign - Last 12Hours 04/13/17 04/14/17 22:09 00:09 Temp 102.1 Pulse 96 Resp 24 B/P (MAP) 141/81 Pulse Ox 97 O2 Delivery Room Air Capillary Refill : Less Than 3 Seconds General Appearance: Other (the patient was lying supine with a cold rag over his forehead when I entered the room. His cheeks were quite flushed) Eyes: Bilateral Eye Normal Inspection HEENT: Normal ENT Inspection Neck: Normal Inspection Respiratory: Chest Non Tender, Lungs Clear, Normal Breath Sounds, No Accessory Muscle Use, No Respiratory Distress Cardiovascular: Regular Rate, Rhythm, No Edema, No Gallop, No JVD, No Murmur, Normal Peripheral Pulses Gastrointestinal: Normal Bowel Sounds, No Organomegaly, No Pulsatile Mass, Non Tender, Soft Back: Normal Inspection, No CVA Tenderness, No Vertebral Tenderness Extremity: Normal Capillary Refill, Normal Inspection, Normal Range of Motion, Non Tender, No Calf Tenderness, No Pedal Edema Skin: Normal Color, Warm/Dry Lymphatic: No Adenopathy Results Results/Procedures Lab Laboratory Tests 04/13/17 22:35 04/14/17 05:27 Assessment/Plan Admission Diagnosis 1.febrile illness 2.curious 2 weeks of progression of symptoms. 3.diabetes type II Assessment and Plan The UA showed ketones and increased specific gravity consistent with dehydration. Therefore while other serology is pending he will have continued IV fluids, Tylenol for headache Clinical Quality Measures DVT/VTE Risk/Contraindication: Risk Factor Score Per Nursin RFS Level Per Nursing on Admit: 2=Moderate RAE PAGE MD Apr 14, 2017 16:08
[2017-04-14 19:30] VITALS: BP 127/75
[2017-04-14 23:15] VITALS: BP 130/77
[2017-04-15] MEDS: ONDANSETRON 4 MG/2 ML (SDV) Z0FRAN IV PRN ×3 (02:05→18:35)
[2017-04-15] MEDS: ACETAMINOPHEN 500 MG TAB (TYLENOL) PO PRN ×3 (02:05→18:36)
[2017-04-15 03:44] VITALS: BP 120/73
[2017-04-15] MEDS: KETOROLAC 15 MG/ML VIAL IV PRN (03:52)
[2017-04-15] MEDS: NS IV 1000 ML 1,000 ML IV SCH ×3 (03:52→17:23)
[2017-04-15 08:00] VITALS: BP 147/79
--- NOTE | 2017-04-15 08:34 | Progress Note-Hospitalist ---
Subjective HPI/CC On Admission Date Seen by Provider: Apr 15, 2017 Time Seen by Provider: 08:00 The patient is a 42-year-old white male who was admitted early this morning after he presented to the emergency room with complaints of fever and headache. This illness apparently began 2 weeks ago today. Initial symptoms were that of aching all over, general malaise and loss of appetite. He denied any fever or chills initially. On or Friday of that week he developed a fine rash at first on his face and neck and then more universally. He saw Dr. Calix at the office on 04/10. Exam and laboratory were basically normal. He reports that by Friday morning he began to run a fever and had developed a headache and nausea. 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 In addition he continued to have a headache. He noted some change in the headache with increase in sitting and standing. Subjective/Events-last exam Mr. Diehl developed watery diarrhea. He denies abdominal cramping but is had about 9 stools over the last 18 hours. It began abruptly initially nonbloody. He reports he has an irritated hemorrhoid and has noted a little bit of blood with wiping but nothing mixed in with the stool. He reports that his nausea is moderating any still having intermittent headaches worse when he sits up. It is associated with photophobia and mild neck stiffness. There has been no confusion and he still been intermittently febrile although currently his temperature is down to the 99 range. He's had no problems with rash denies cough chest pain and currently denies arthralgia or myalgia. They report 1 old dog at home and is a history of seizure disorder but has not been behaving strangely and has not lost his appetite in the time the past several weeks that they are aware of. He has no other animal exposure. Family members have been well and he said minimal outdoor exposure. He pulled one tick off in January that may not even been attached had not been out in the [place] over the summer that he can remember since that time. Objective Exam Vital Signs Vital Sign - Last 12Hours 04/13/17 04/14/17 22:09 00:09 Temp 102.1 Pulse 96 Resp 24 B/P (MAP) 141/81 Pulse Ox 97 O2 Delivery Room Air Capillary Refill : Less Than 3 Seconds General Appearance: Mild Distress (As washcloth over her for head but is alert and oriented 3) HEENT: Pharynx Normal Neck: Full Range of Motion, Supple, Other (Tenderness with range of motion with no rigidity.) Respiratory: Chest Non Tender, Lungs Clear, Normal Breath Sounds, No Accessory Muscle Use, No Respiratory Distress Cardiovascular: Regular Rate, Rhythm, No Edema, No Gallop, No JVD, No Murmur, Normal Peripheral Pulses Gastrointestinal: Normal Bowel Sounds, No Organomegaly, No Pulsatile Mass, Non Tender, Soft Skin: Normal Color, Warm/Dry, Damp Lymphatic: No Adenopathy Assessment/Plan Assessment and Plan Assess & Plan/Chief Complaint 1. Sepsis not severe likely viral etiology with meningismus and now diarrhea. He is a very mild elevation in monocyte counts all other white count parameters are normal with normal chemistry panel except for mild hyperglycemia in individual who is a known type II diabetic not requiring any medication currently. Lumbar puncture on Friday revealed only 4 white cells and normal protein level. Tic serologies haven't returned and are negative with tularemia pending although he has no exposure risk. Considering that his headache is worse significantly when he sits up, cannot rule out a spinal leak from his spinal tap however with ongoing fever will hold off recommendations for blood patch continuing conservative management. Will give several doses of scheduled IV Toradol for fever or headache and when necessary Lomotil. Patient's only antibiotic exposure was 1 dose of doxycycline over the weekend. I will also send off HIV PCR for viral load. There is no reported high risk sexual activity and reported monogamous relationship. TAYA CALIX MD Apr 15, 2017 08:34
[2017-04-15] MEDS ORDERED: DIPHENOXYLATE/ATROPINE 2.5MG/0.025MG (LOMOTIL) TAB PO PRN (08:45)
[2017-04-15 10:55] LABS: TULAREMIA ANTIBODY <1:20
[2017-04-15 11:33] LABS: BASOPHILS % (AUTO) 0 % (0-10); EOSINOPHILS % (AUTO) 0 % (0-10); LYMPHOCYTES # (AUTO) 2.6 X 10^3 (1.0-4.0); LYMPHOCYTES % (AUTO) 33 % (12-44); MEAN CORPUSCULAR HEMOGLOBIN 31 PG (25-34); MEAN CORPUSCULAR HGB CONC 34 G/DL (32-36); MEAN CORPUSCULAR VOLUME 90 FL (80-99); MEAN PLATELET VOLUME 9.8 FL (7.4-10.4); MONOCYTES % (AUTO) 13 % (0-12); NEUTROPHILS # (AUTO) 4.3 X 10^3 (1.8-7.8); NEUTROPHILS % (AUTO) 54 % (42-75); PLATELET COUNT 302 10^3/uL (130-400); RED BLOOD COUNT 4.29 10^6/uL (4.35-5.85); RED CELL DISTRIBUTION WIDTH 12.1 % (10.0-14.5)
[2017-04-15 12:00] VITALS: BP 166/94
[2017-04-15 13:18] LABS: EHRLICHIA CHAFFEENSIS G ABY <1:16 (<1:16)
[2017-04-15] MEDS: KETOROLAC 30 MG/ML VIAL IVP SCH ×2 (13:40→21:53)
[2017-04-15 15:48] LABS: IGG ROCKY MOUNTAIN SPOTTED FEV <1:16 (<1:16); IGM ROCKY MOUNTAIN SPOTTED FEV <1:10 (<1:10)
[2017-04-15 16:25] VITALS: BP 136/76
[2017-04-15 19:35] VITALS: BP 126/72
[2017-04-16] VITALS (7 sets, daily range): BP systolic 135–149; BP diastolic 73–85
[2017-04-16] MEDS: NS IV 1000 ML 1,000 ML IV SCH ×3 (00:10→17:53)
[2017-04-16] MEDS ORDERED: fentaNYL INJECTION 100 MCG/2 ML AMP IVP ONE (00:45)
[2017-04-16] MEDS: ONDANSETRON 4 MG/2 ML (SDV) Z0FRAN IV PRN ×5 (00:54→19:56)
[2017-04-16] MEDS ORDERED: CATHETER FLUSH 10 ML SYR IV PRN (03:00)
[2017-04-16] MEDS: CATHETER FLUSH 10 ML SYR IV SCH ×3 (05:06→22:18)
[2017-04-16] MEDS: KETOROLAC 30 MG/ML VIAL IVP SCH ×3 (05:07→22:16)
[2017-04-16 05:09] LABS: BASOPHILS % (AUTO) 0 % (0-10); EOSINOPHILS % (AUTO) 0 % (0-10); LYMPHOCYTES # (AUTO) 2.3 X 10^3 (1.0-4.0); LYMPHOCYTES % (AUTO) 32 % (12-44); MEAN CORPUSCULAR HEMOGLOBIN 30 PG (25-34); MEAN CORPUSCULAR HGB CONC 34 G/DL (32-36); MEAN CORPUSCULAR VOLUME 90 FL (80-99); MONOCYTES # (AUTO) 0.9 X 10^3 (0.0-1.0); MONOCYTES % (AUTO) 13 % (0-12); NEUTROPHILS % (AUTO) 55 % (42-75); PLATELET COUNT 262 10^3/uL (130-400); RED BLOOD COUNT 4.35 10^6/uL (4.35-5.85); RED CELL DISTRIBUTION WIDTH 12.1 % (10.0-14.5); WHITE BLOOD COUNT 7.2 10^3/uL (4.3-11.0)
[2017-04-16 05:34] LABS: ALANINE AMINOTRANSFERASE 38 U/L (0-55); ALBUMIN 3.4 GM/DL (3.2-4.5); ANION GAP 10 MMOL/L (5-14); ASPARTATE AMINO TRANSFERASE 32 U/L (5-34); BLOOD UREA NITROGEN 14 MG/DL (7-18); BUN/CREATININE RATIO 17; CALCIUM 8.2 MG/DL (8.5-10.1); CARBON DIOXIDE 22 MMOL/L (21-32); CHLORIDE 108 MMOL/L (98-107); CREATININE SERUM 0.84 MG/DL (0.60-1.30); GFR ESTIMATED > 60; GLUCOSE 99 MG/DL (70-105); POTASSIUM 3.7 MMOL/L (3.6-5.0); SODIUM 140 MMOL/L (135-145); TOTAL PROTEIN 6.1 GM/DL (6.4-8.2)
[2017-04-16 07:32] LABS: HIV AG AB SCREEN Non-Reactive (Non-Reactive)
--- NOTE | 2017-04-16 08:50 | Progress Note-Hospitalist ---
Subjective HPI/CC On Admission Date Seen by Provider: Apr 16, 2017 Time Seen by Provider: 08:00 The patient is a 42-year-old white male who was admitted early this morning after he presented to the emergency room with complaints of fever and headache. This illness apparently began 2 weeks ago today. Initial symptoms were that of aching all over, general malaise and loss of appetite. He denied any fever or chills initially. On or Friday of that week he developed a fine rash at first on his face and neck and then more universally. He saw Dr. Calix at the office on 04/10. Exam and laboratory were basically normal. He reports that by Friday morning he began to run a fever and had developed a headache and nausea. 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 In addition he continued to have a headache. He noted some change in the headache with increase in sitting and standing. Subjective/Events-last exam Asians still having significant headache pain with neck stiffness. He was able to sleep after fentanyl 50 g injection last night in addition to his scheduled Toradol. He jia little increase in puffiness and had remove his ring in regards to some bilateral mild hand swelling. He reports his diarrhea has resolved and he said feeling hungry asking about advancing to a regular diet as he would like to try some toast. He denies any problems with testicular pain or swelling denies abdominal pain cough or Reiger's. MAXIMUM TEMPERATURE was down to 101.3. Objective Exam Vital Signs Vital Sign - Last 12Hours 04/13/17 04/14/17 22:09 00:09 Temp 102.1 Pulse 96 Resp 24 B/P (MAP) 141/81 Pulse Ox 97 O2 Delivery Room Air Capillary Refill : Less Than 3 Seconds General Appearance: WD/WN, Mild Distress Neck: Full Range of Motion, Normal Inspection, Supple, Tender Lateral Respiratory: Chest Non Tender, Lungs Clear, Normal Breath Sounds, No Accessory Muscle Use, No Respiratory Distress Cardiovascular: Regular Rate, Rhythm, No Edema, No Gallop, No JVD, No Murmur, Normal Peripheral Pulses, Other (Heart rate 72 and regular) Gastrointestinal: Normal Bowel Sounds, No Organomegaly, No Pulsatile Mass, Non Tender, Soft Skin: Normal Color, Warm/Dry, Other (No rash) Results/Procedures Lab Laboratory Tests 04/15/17 11:23 04/16/17 04:59 Assessment/Plan Assessment and Plan Assess & Plan/Chief Complaint 1. Sepsis not severe likely viral etiology with meningismus with negative spinal tap and moderating diarrhea. He is a very mild elevation in monocyte counts all other white count parameters are normal with normal chemistry panel except for mild hyperglycemia in individual who is a known type II diabetic not requiring any medication currently. Lumbar puncture on Friday revealed only 4 white cells and normal protein level. Tic serologies have returned and are negative.. . Will scheduled IV Toradol for fever or headache and when necessary fentanyl.. CBC and chemistry panels remained normal except for slightly low protein level and slightly elevated monocyte count. Will advance diet to regular and had sliding scale insulin.. I will also send off HIV PCR for viral load. There is no reported high risk sexual activity and reported monogamous relationship. TAYA CALIX MD Apr 16, 2017 08:50
[2017-04-16] MEDS: fentaNYL INJECTION 100 MCG/2 ML AMP IVP PRN ×4 (08:55→20:26)
[2017-04-16] MEDS: inSUlin ASPART (NovoLOG) 1 UNIT/0.01 ML (CHARGE PER UNIT) SC SCH ×3 (11:19→20:47)
[2017-04-16] MEDS: ACETAMINOPHEN 500 MG TAB (TYLENOL) PO PRN (11:48)
[2017-04-17] MEDS: fentaNYL INJECTION 100 MCG/2 ML AMP IVP PRN ×2 (00:57→05:28)
[2017-04-17] MEDS: ONDANSETRON 4 MG/2 ML (SDV) Z0FRAN IV PRN ×3 (01:00→10:51)
[2017-04-17 03:18] VITALS: BP 153/92
[2017-04-17] MEDS ORDERED: KETOROLAC 30 MG/ML VIAL IVP ONE (04:15)
[2017-04-17] MEDS: inSUlin ASPART (NovoLOG) 1 UNIT/0.01 ML (CHARGE PER UNIT) SC SCH ×4 (05:20→20:35)
[2017-04-17] MEDS: CATHETER FLUSH 10 ML SYR IV SCH ×3 (06:28→21:36)
[2017-04-17] MEDS: NS IV 1000 ML 1,000 ML IV SCH ×2 (07:38→20:34)
[2017-04-17 08:33] VITALS: BP 150/92
[2017-04-17] MEDS: KETOROLAC 30 MG/ML VIAL IV SCH ×2 (08:38→16:40)
--- NOTE | 2017-04-17 08:39 | Progress Note-Hospitalist ---
Subjective HPI/CC On Admission Date Seen by Provider: Apr 17, 2017 Time Seen by Provider: 08:05 The patient is a 42-year-old white male who was admitted early this morning after he presented to the emergency room with complaints of fever and headache. This illness apparently began 2 weeks ago today. Initial symptoms were that of aching all over, general malaise and loss of appetite. He denied any fever or chills initially. On or Friday of that week he developed a fine rash at first on his face and neck and then more universally. He saw Dr. Calix at the office on 04/10. Exam and laboratory were basically normal. He reports that by Friday morning he began to run a fever and had developed a headache and nausea. 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 In addition he continued to have a headache. He noted some change in the headache with increase in sitting and standing. Subjective/Events-last exam upon my arrival the patient was sleeping. Upon waking him up he became nauseated and vomited without hematemesis. It was just a small amount of clear emesis. He denies any problems with headache while vomiting and was able to walk a little yesterday without exacerbation of headache pain. MAXIMUM TEMPERATURE was 100 most of his temperatures were normal but his appetite remains poor. He did require that now last night for generalized discomfort with mild headache and this may be exacerbating nausea. His believes however that he had some vomiting not associated with fentanyl yesterday. He denies abdominal pain he apparently had some right shoulder pain yesterday but denies any current pain. Objective Exam Vital Signs Vital Sign - Last 12Hours 04/13/17 04/14/17 22:09 00:09 Temp 102.1 Pulse 96 Resp 24 B/P (MAP) 141/81 Pulse Ox 97 O2 Delivery Room Air Capillary Refill : Less Than 3 Seconds General Appearance: Moderate Distress Neck: Full Range of Motion, Normal Inspection, Non Tender, Supple Respiratory: Chest Non Tender, Lungs Clear, Normal Breath Sounds, No Accessory Muscle Use, No Respiratory Distress Cardiovascular: Regular Rate, Rhythm, No Edema, No Gallop, No JVD, No Murmur, Normal Peripheral Pulses Gastrointestinal: Normal Bowel Sounds, No Organomegaly, No Pulsatile Mass, Non Tender, Soft Assessment/Plan Assessment and Plan Assess & Plan/Chief Complaint 1. Sepsis not severe likely viral etiology with meningismus improving. He is a very mild elevation in monocyte counts all other white count parameters are normal with normal chemistry panel except for mild hyperglycemia in individual who is a known type II diabetic not requiring any medication currently. Lumbar puncture on Friday revealed only 4 white cells and normal protein level. Tic serologies have returned and are negative.. . 2. Nausea and vomiting are precluding the potential for discharge today. We will add scheduled Reglan 10 mg every 6 hours and give 1 dose of Solu-Medrol. Will decrease fentanyl 25 g continuing use only if needed for significant pain. If there is no improvement in nausea or vomiting will look into abdominal sonography for cholecystitis evaluation. As viral sepsis is moderating with resolution of fever if the patient is tolerating liquids with improved symptoms we will hopefully be setting up for discharge tomorrow. In regards to outstanding blood tests his HIV antibody screen is negative but viral load is pending to rule out primary H IV infection. TAYA CALIX MD Apr 17, 2017 08:39
[2017-04-17] MEDS ORDERED: METOCLOPRAMIDE INJ 10 MG/2 ML (REGLAN) IVP NR (08:43)
[2017-04-17] MEDS ORDERED: methylPREDNISolone 125 MG (Solu-MEDROL) VIAL IVP NR (08:43)
[2017-04-17] MEDS ORDERED: fentaNYL INJECTION 100 MCG/2 ML AMP IVP PRN (08:45)
[2017-04-17 12:00] VITALS: BP 166/92
[2017-04-17] MEDS: METOCLOPRAMIDE INJ 10 MG/2 ML (REGLAN) IVP SCH ×2 (14:10→18:23)
[2017-04-17] MEDS: amLODIPine 5 MG (NORVASC) TAB PO SCH (14:33)
[2017-04-17] MEDS: BENAZEPRIL 20 MG (LOTENSIN) TAB PO SCH (14:33)
[2017-04-17 15:49] VITALS: BP 145/77
[2017-04-17 19:18] VITALS: BP 138/70
[2017-04-18] VITALS: BP 134/73
[2017-04-18] MEDS: METOCLOPRAMIDE INJ 10 MG/2 ML (REGLAN) IVP SCH ×2 (00:10→05:33)
[2017-04-18 04:00] VITALS: BP 143/78
[2017-04-18] MEDS: inSUlin ASPART (NovoLOG) 1 UNIT/0.01 ML (CHARGE PER UNIT) SC SCH ×2 (05:33→11:02)
[2017-04-18] MEDS: CATHETER FLUSH 10 ML SYR IV SCH (06:17)
[2017-04-18] MEDS: amLODIPine 5 MG (NORVASC) TAB PO SCH (07:50)
[2017-04-18] MEDS: BENAZEPRIL 20 MG (LOTENSIN) TAB PO SCH (07:50)
[2017-04-18] MEDS: ACETAMINOPHEN 500 MG TAB (TYLENOL) PO PRN (07:51)
[2017-04-18 08:12] VITALS: BP 155/89
[2017-04-18] MEDS ORDERED: NON-FORMULARY MEDICATION 1 EA EA (Amlodipine Besylate/Benazepril (Amlodipine-Benazepril 5- PO SCH (09:00)
[2017-04-18] MEDS: NS IV 1000 ML 1,000 ML IV SCH (10:06)
[2017-04-18 12:00] VITALS: BP 156/94
--- NOTE | 2017-04-18 12:53 | Discharge Summary-Hospitalist ---
Diagnosis/Chief Complaint Date of Admission Apr 14, 2017 at 01:19 Date of Discharge Discharge Date: Apr 18, 2017 Admission Diagnosis 1.febrile illness 2.curious 2 weeks of progression of symptoms. 3.diabetes type II Discharge Diagnosis 1. Sepsis not severe likely viral etiology with meningismus improving. He is a very mild elevation in monocyte counts all other white count parameters are normal with normal chemistry panel except for mild hyperglycemia in individual who is a known type II diabetic not requiring any medication currently. Lumbar puncture on Friday revealed only 4 white cells and normal protein level. Tic serologies have returned and are negative.. . 2. Nausea and vomiting are precluding the potential for discharge today. We will add scheduled Reglan 10 mg every 6 hours and give 1 dose of Solu-Medrol. Will decrease fentanyl 25 g continuing use only if needed for significant pain. If there is no improvement in nausea or vomiting will look into abdominal sonography for cholecystitis evaluation. As viral sepsis is moderating with resolution of fever if the patient is tolerating liquids with improved symptoms we will hopefully be setting up for discharge tomorrow. In regards to outstanding blood tests his HIV antibody screen is negative but viral load is pending to rule out primary H IV infection. Discharge Summary Discharge Physical Examination Allergies: Coded Allergies: No Known Drug Allergies (Unverified , 06/08/12) Vitals & I&Os Vital Signs Date Time Temp Pulse Resp B/P (MAP) Pulse Ox O2 Delivery O2 Flow Rate FiO2 04/18/17 08:12 98.0 84 20 155/89 95 Room Air Hospital Course Labs (last 24 hrs) Laboratory Tests 04/17/17 15:59: Glucometer 166H 04/17/17 20:21: Glucometer 159H 04/18/17 05:28: Glucometer 98 04/18/17 10:40: Glucometer 115H Microbiology 04/13/17 Blood Culture - Preliminary, Resulted No growth Pending Labs Laboratory Tests 04/18/17 05:28: Glucometer 98 04/18/17 10:40: Glucometer 115 Discussion & Recommendations the patient was admitted with high fever and severe headache with meningism with normal protein levels 2 WBCs and a few RBCs. He continued to have significant Serologies were negative includi and HIV antibody studies. Viral load to rule out the possibility of primary HIV infection for which the patient is deemed to Be of low risk. He required IV fluid support due to poor by mouth intake. Temperatures finally defervesced with resolution of headache. He was discharged feeling much better with normal skin color. He is to follow- up in the office in one week. Discharge Home Medications: Active Scripts Active Reported Meclizine HCl 25 Mg Tablet 25-50 Mg PO EVERY 4-6 HOURS PRN Transderm-Scop (Scopolamine) 1 Each Patch.td72 1 Patch TD Q72H PRN Promethazine Tablet (Promethazine HCl) 25 Mg Tablet 25 Mg PO Q8H PRN Fish Oil 1,000 mg Capsule ([place] 3 Polyunsat Fatty Acids) 1,000 Mg Cap 2,000 Mg PO HS TAKES 2 (1000MG) CAPSULES Fish Oil 1,000 mg Capsule ([place] 3 Polyunsat Fatty Acids) 1,000 Mg Cap 1,000 Mg PO DAILY Vitamin C (Ascorbic Acid) 1,000 Mg Tablet 1,000 Mg PO DAILY Simvastatin 20 Mg Tablet 20 Mg PO HS Zofran Odt (Ondansetron) 4 Mg Tab.rapdis 4 Mg PO Q6H PRN Doxycycline Hyclate 100 Mg Tablet 100 Mg PO BID 10 Days 10 DAY THERAPY FILLED 04-12-17 Hydrocodon-Acetaminoph 7.5-325 (Hydrocodone/Acetaminophen) 1 Each Tablet 1 Tab PO Q6H PRN Aspirin EC (Aspirin) 81 Mg Tablet. 81 Mg PO DAILY Amlodipine-Benazepril 5-20 mg (Amlodipine Besylate/Benazepril) 1 Each Capsule 1 Cap PO DAILY Multi-Vitamin Daily (Multivitamin) 1 Each Tablet 1 Tab PO DAILY Omeprazole 20 Mg Tablet. 20 Mg PO DAILY Actoplus Met 15 Mg-500 Mg Tab (Pioglitazone Hcl/Metformin Hcl) 1 Each Tablet 1 Tab PO BID Instructions to patient/family Please see electonic discharge instructions given to patient. Clinical Quality Measures DVT/VTE Risk/Contraindication: Risk Factor Score Per Nursin RFS Level Per Nursing on Admit: 2=Moderate Copy Copies To 1: TAYA CALIX MD, MARK D MD Apr 18, 2017 12:53
[2017-04-22 12:22] LABS: HIV-1 RNA PCR COPIES/ML PT Not Detected Copies/mL (<=39)
[2017-04-22 12:33] LABS: HIV-1 RNA PCR LOG COPIES/ML PT Not Detected (<=1.59)
== END 2017-04-18 13:05 | disposition home or self-care (01) | DRG 872 ==
LOC: EDUNIT# 21:59 → ER 22:01 → 4TH 04-14 00:45 → UNDOADMOB 04-14 00:45 → 4TH 04-14 01:19 → OBSVTOIN 04-14 01:19 → INTOOBSV 04-14 01:19 → 4TH 04-14 13:00 → OBSVTOIN 04-16 08:50 → UNDODISIN 04-18 13:05
PROVIDERS: ADMIT Internal Medicine; ATTEND Internal Medicine
DX: A41.89 Other specified sepsis (principal); B97.89 Other viral agents as the cause of diseases classified elsewhere; R29.1 Meningismus; E86.0 Dehydration; E11.65 Type 2 diabetes mellitus with hyperglycemia; I10 Essential (primary) hypertension; R11.2 Nausea with vomiting, unspecified; R19.7 Diarrhea, unspecified
CPT/HCPCS: 36415; 71010; 80048; 80053; 81000; 82962; 83605; 85025; 85610; 85652; 85730; 86038; 86157; 86308; 86666; 86668; 86703; 86757; 87040; 87536; 96361; 96374; 96375; G0378

== ENCOUNTER 2022-06-12 06:28 | Outpatient (CLI) | payer OTHER ==
[~2022-06-12] VITALS: Ht 175.3 cm; Wt 94.3 kg
[~2022-06-12 06:28] MED LIST changes: +AMLO-77 PO; +ASCO100024 PO; +ASPI-1238 PO; +HYDR-34 PO; -HYDR-3816 PO; -MECL-106 PO; +MECL-149 PO; +OMG1KC PO; +ONDA4TAB8 PO; +SCOP1PAT10 TD; +SIMV20TA26 PO
== END 2022-06-12 08:52 | disposition home or self-care (01) ==
LOC: PREOP 06:28
PROVIDERS: ATTEND Internal Medicine
DX: Z01.818 Encounter for other preprocedural examination (principal)

== ENCOUNTER 2022-06-21 07:04 | Day surgery (SDC) | payer OTHER ==
--- NOTE | 2022-06-05 15:10 | HISTORY AND PHYSICAL ---
DATE OF SERVICE: COLONOSCOPY HISTORY AND PHYSICAL HISTORY OF PRESENT ILLNESS: The patient is a 47-year-old white male seen for yearly wellness evaluation. He is being set up for colonoscopy, deemed to be of average risk in his first screening procedure. He reports no known family history for colon cancer. Denies abdominal pain, change in bowel habit, bright red blood per rectum or melena. Reports that he has been feeling well. He reports he just returned from vacation where he had put on a few pounds on a cruise, had been doing better with the portion controlling and weight loss previous to this. Otherwise, he has been feeling well. He has no smoking history and no significant alcohol consumption history. He had received a flu shot last week and reports that he has had 2 COVID boosters as I recall not the latest bivalent and his last injection was in November. PAST MEDICAL HISTORY: Significant for insulin resistance. He has been on Actos plus metformin for this for the past several years. FAMILY HISTORY: Reports no change in family history. See previous notation. PHYSICAL EXAMINATION: GENERAL: Reveals a white male, appears to be in no acute distress. HEENT: Unremarkable. Sclerae nonicteric. VITAL SIGNS: Blood pressure 110/68, weight up 3 pounds at 208.4. CHEST: Clear to auscultation. CARDIOVASCULAR: Reveals regular rate and rhythm without murmur, S3 or S4. ABDOMEN: Soft, supple without mass, organomegaly or tenderness. EXTREMITIES: Reveal no cyanosis, clubbing or edema. SKIN: Evaluation revealed no suspicious nevi. LABORATORY DATA: Blood tests were reviewed with the patient. His blood sugar was up to 116 from 100. Lipid parameters were reasonable. No evidence for proteinuria on protein to creatinine ratio. ASSESSMENT AND PLAN: Insulin resistance. Discussed that even few pounds make a difference. He is committed to getting back to portion control and regular physical activity. We will monitor his progress and discuss the possibility of Mounjaro on return. He will be calling us back with a time in the next month to set up for his first screening colonoscopy. Prep instructions were given, questions were answered and discussed rationale for screening colonoscopy. We will see him back in six months with a repeat BMP and A1c. Job ID: [id number] DocumentID: [id number] Dictated Date: 05/29/2022 17:14:14 Charging Plug Placer Date: 05/29/2022 17:32:33 Dictated By: TAYA CALIX MD
[~2022-06-21] VITALS: Ht 175.3 cm; Wt 94.3 kg
[2022-06-21] MEDS ORDERED: LACTATED RINGERS 1,000 ML IV STA (07:21)
[2022-06-21 07:30] VITALS: BP 144/98
--- NOTE | 2022-06-21 07:50 | Pre-Op Note & Conscious Sedat ---
Pre-Operative Progress Note Date of Available H&P: Jun 21, 2022 Date H&P Reviewed: Jun 21, 2022 Time H&P Reviewed: 07:50 History & Physical: H&P Reviewed, Patient Examed, No changes noted Pre-Op Diagnosis: screening Conscious Sedation Pre-Proced ASA Score 2 For ASA 3 and 4: Consider anesthesia and medical clearance. Also, for patients with a history of failed moderate sedation consider anesthesia. Airway Lungs Heart ASA score ASA 1: a normal healthy patient ASA 2: a patient with a mild systemic disease (mid diabetes, controlled hypertension, obesity ASA 3: a patient with a severe systemic disease that limits activity (angina, COPD, prior Myocardial infarction) ASA 4: a patient with an incapacitating disease that is a constant threat to life (CHF, renal failure) ASA 5: a moribund patient not expected to survive 24 hrs. (ruptured aneurysm) ASA 6: a declared brain- patient whose organs are being harvested. For emergent operations, add the letter E after the classification Mallampati Classification Grade 2 Sedation Plan Analgesia, Amnesia, Plan communicated to team members, Discussed options with patient/fam, Discussed risks with patient/fam The patient is an appropriate candidate to undergo the planned procedure, sedation, and anesthesia. The patient immediately re-assessed prior to indication. TAYA CALIX MD Jun 21, 2022 07:50
[2022-06-21] MEDS ORDERED: PROPOFOL INJECTION 50 ML IV ONE (07:53)
[2022-06-21] MEDS ORDERED: MIDAZOLAM 2 MG/2 ML (VERSED) VIAL ONE (07:53)
[2022-06-21 08:20] VITALS: BP 135/72
[2022-06-21 08:25] VITALS: BP 128/74
--- NOTE | 2022-06-21 08:26 | Progress Note-Post Operative ---
Post-Procedure Note Physician (s)/Ambulance Mechanic (s) Physician TAYA CALIX MD Pre-Procedure Diagnosis Pre-Procedure Diagnosis: screening Post-Procedure Diagnosis Post-operative diagnosis: Screening colonoscopy: The patient was placed in the left lateral decubitus position. Prior to undergoing colonoscopy digital rectal evaluation was performed. Anal suture tone was normal and the perianal reflexes intact. No abnormalities noted on digital section anal canal distal rectal vault. The prostate was unremarkable on digital inspection as well. The colonoscope was then inserted into the rectum and under direct physician advanced to the cecum. The cecum was identified by identification of the ileocecal valve and cecal strap. Photographic documentation was obtained. Quality the prep was good. Findings: The rectum sigmoid colon descending colon splenic flexure transverse colon hepatic flexure ascending colon and cecum were normal with no evidence for diverticulum hemorrhoids or neoplasia. Assessment normal colonoscopy to the cecum. Advocate consideration for repeat screening colonoscopy in 10 years. TAYA CALIX MD Jun 21, 2022 08:26
[2022-06-21 08:28] VITALS: BP 136/79
[2022-06-21 09:05] VITALS: BP 128/74
--- NOTE | 2022-06-21 11:09 | Anesthesia-General Post-Op ---
MAC Patient Condition Mental Status/LOC: Same as Preop Cardiovascular: Satisfactory Nausea/Vomiting: Absent Respiratory: Satisfactory Pain: Controlled Complications: Absent Post Op Complications Complications None Follow Up Care/Instructions Patient Instructions None needed. Anesthesiology Discharge Order Discharge Order Patient is doing well, no complaints, stable vital signs, no apparent adverse anesthesia problems. No complications reported per nursing. TERESITA LOPEZ CRNA Jun 21, 2022 11:09
== END 2022-06-21 09:05 | disposition home or self-care (01) ==
LOC: ENDO 07:04
PROVIDERS: ATTEND Internal Medicine
DX: Z12.11 Encounter for screening for malignant neoplasm of colon (principal); E88.81 Metabolic syndrome and other insulin resistance
CPT/HCPCS: 82947

== ENCOUNTER 2022-10-27 12:58 | Emergency (ER) | payer OTHER ==
--- NOTE | 2022-10-27 13:21 | ED Respiratory ---
General Chief Complaint: Respiratory Problems Stated Complaint: SOB Nursing Triage Note: PT AMB TO RM 6 WITH C/O OF INCREASED HR, SOA AND L ARM PAIN SINCE YESTERDAY. PT DENIES CHEST PAIN. Source: patient, family () Exam Limitations: no limitations History of Present Illness Date Seen by Provider: Oct 27, 2022 Time Seen by Provider: 13:04 Initial Comments 47-year-old male presents to the emergency department today for shortness of fred ath, mostly with exertion. He noticed symptoms first yesterday when he was cleaning out the freezer in the garage. He was unusually winded after a task where he would normally not be. He does not really have any shortness of breath at baseline. He noticed throughout the rest of the day yesterday and through the morning today that he was more short of breath with even light activity. His heart rate has been elevated more than usual as well. He states his heart rate is usually in the 60s or 70s it has been in the 90s to 100 range. No fevers chills cough. No chest pain but he has developed some pain in his left mid bicep. It is intermittent in nature, started today at about 10 AM and has happened a couple times. It is a sharp stabbing sensation last about 2 or 3 minutes and completely resolved. He is noted no swelling. No history of DVT, PE. No recent long distance travel, periods of immobility. No recent surgeries. He has no cardiac or pulmonary history. All other systems reviewed and negative except documented per HPI. Voice recognition software was used to help create this chart Allergies and Home Medications Allergies Coded Allergies: No Known Drug Allergies (Unverified , 06/08/12) Patient Home Medication List Home Medication List Reviewed: Yes Amlodipine Besylate/Benazepril (Amlodipine-Benazepril 5-20 mg) 1 Each Capsule, 1 CAP PO DAILY, (Reported) Entered as Reported by: KRISTEN HERNANDEZ on 04/14/17 0847 Ascorbic Acid (Vitamin C) 1,000 Mg Tablet, 1,000 MG PO DAILY, (Reported) Entered as Reported by: KRISTEN HERNANDEZ on 04/14/17 0847 Multivitamin (Multi-Vitamin Daily) 1 Each Tablet, 1 TAB PO DAILY, (Reported) Entered as Reported by: CHASTITY TEIXEIRA on 06/08/12 5682 [place] 3 Polyunsat Fatty Acids (Fish Oil 1,000 mg Capsule) 1,000 Mg Cap, 1,000 MG PO DAILY, (Reported) Entered as Reported by: KRISTEN HERNANDEZ on 04/14/17846 Omeprazole (Omeprazole) 20 Mg Tablet.dr, 20 MG PO DAILY, (Reported) Entered as Reported by: CHASTITY TEIXEIRA on 06/08/122235 Pioglitazone Hcl/Metformin Hcl (Actoplus Met 15 Mg-500 Mg Tab) 1 Each Tablet, 1 TAB PO BID, (Reported) Entered as Reported by: CHASTITY TEIXEIRA on 06/08/122235 Simvastatin (Simvastatin) 20 Mg Tablet, 20 MG PO HS, (Reported) Entered as Reported by: KRISTEN HERNANDEZ on 04/14/17846 Review of Systems Review of Systems Constitutional: no symptoms reported Past Ubyavqg-Ecuetr-Oorfjv Hx Patient Social History Tobacco Use?: No Use of E-Cig and/or Vaping dev: No Substance use?: No Alcohol Use?: No Immunizations Up To Date First/Initial COVID19 Vaccinat: YES Second COVID19 Vaccination Nigel: YES Third COVID19 Vaccination Date: N/A Seasonal Allergies Seasonal Allergies: No Past Medical History Surgeries: No Respiratory: No Cardiac: Yes Hypertension Neurological: Yes Vertigo Genitourinary: No Gastrointestinal: No Musculoskeletal: No Endocrine: Yes Diabetes, Non-Insulin dep HEENT: No Loss of Vision: Denies Hearing Impairment: Denies Cancer: No Psychosocial: No Integumentary: No Blood Disorders: No Family Medical History No Pertinent Family Hx Physical Exam Vital Signs - First Documented 10/27/22 13:09 Temp 37.0 Pulse 89 Resp 33 B/P (MAP) 149/84 (105) Pulse Ox 98 O2 Delivery Room Air Capillary Refill : Less Than 3 Seconds Height: 5'9.00" Weight: 212lbs. 0.5oz. [id number]; 30.68 BMI Method:Stated General Appearance: WD/WN, no apparent distress HEENT: normal ENT inspection, pharynx normal Neck: non-tender, supple, normal inspection Respiratory: chest non-tender, lungs clear, normal breath sounds, no respiratory distress, no accessory muscle use Cardiovascular: regular rate, rhythm, no edema, no murmur Gastrointestinal: normal bowel sounds, non tender, soft, no organomegaly Extremities: normal range of motion, non-tender, normal inspection, no pedal edema, no calf tenderness, normal capillary refill Neurologic/Psychiatric: alert, normal mood/affect, oriented x 3 Skin: normal color, warm/dry Progress/Results/Core Measures Suspected Sepsis SIRS Temperature: Pulse: 89 Respiratory Rate: 33 Laboratory Tests 10/27/22 13:20: White Blood Count 7.5 Blood Pressure 149 /84 Mean: 105 Laboratory Tests 10/27/22 13:20: Creatinine 0.99, Platelet Count 271, Total Bilirubin 0.5 Results/Orders Lab Results Laboratory Tests Test 10/27/22 13:20 Range/Units White Blood Count 7.5 4.3-11.0 10^3/uL Red Blood Count 5.20 4.30-5.52 10^6/uL Hemoglobin 16.4 13.3-17.7 g/dL Hematocrit 47 40-54 % Mean Corpuscular Volume 91 80-99 fL Mean Corpuscular Hemoglobin 32 25-34 pg Mean Corpuscular Hemoglobin Concent 35 32-36 g/dL Red Cell Distribution Width 12.3 10.0-14.5 % Platelet Count 271 130-400 10^3/uL Mean Platelet Volume 10.1 9.0-12.2 fL Immature Granulocyte % (Auto) 0 % Neutrophils (%) (Auto) 51 42-75 % Lymphocytes (%) (Auto) 35 12-44 % Monocytes (%) (Auto) 12 0-12 % Eosinophils (%) (Auto) 1 0-10 % Basophils (%) (Auto) 1 0-10 % Neutrophils # (Auto) 3.8 1.8-7.8 10^3/uL Lymphocytes # (Auto) 2.6 1.0-4.0 10^3/uL Monocytes # (Auto) 0.9 0.0-1.0 10^3/uL Eosinophils # (Auto) 0.1 0.0-0.3 10^3/uL Basophils # (Auto) 0.1 0.0-0.1 10^3/uL Immature Granulocyte # (Auto) 0.0 0.0-0.1 10^3/uL D-Dimer < 0.27 0.00-0.49 UG/ML Sodium Level 140 135-145 MMOL/L Potassium Level 4.2 3.6-5.0 MMOL/L Chloride Level 102 98-107 MMOL/L Carbon Dioxide Level 27 21-32 MMOL/L Anion Gap 11 5-14 MMOL/L Blood Urea Nitrogen 21 H 7-18 MG/DL Creatinine 0.99 0.60-1.30 MG/DL Estimat Glomerular Filtration Rate 93 BUN/Creatinine Ratio 21 Glucose Level 151 H 70-105 MG/DL Calcium Level 9.6 8.5-10.1 MG/DL Corrected Calcium 8.5-10.1 MG/DL Total Bilirubin 0.5 0.1-1.0 MG/DL Aspartate Amino Transf (AST/SGOT) 28 5-34 U/L Alanine Aminotransferase (ALT/SGPT) 41 0-55 U/L Alkaline Phosphatase 44 40-136 U/L Troponin I < 0.028 <0.028 NG/ML Total Protein 7.6 6.4-8.2 GM/DL Albumin 4.6 H 3.2-4.5 GM/DL My Orders Orders - SHRUTHIELYSE SANTIAGO DO Comprehensive Metabolic Panel (10/27/22 13:15) Fibrin Degradation Products (10/27/22 13:15) Troponin I Sebastian (10/27/22 13:15) Ekg Tracing (10/27/22 13:15) Chest Pa/Lat (2 View) (10/27/22 13:15) Cbc With Automated Diff (10/27/22 13:15) Vital Signs/I&O 10/27/22 13:09 Temp 37.0 Pulse 89 Resp 33 B/P (MAP) 149/84 (105) Pulse Ox 98 O2 Delivery Room Air Capillary Refill : Less Than 3 Seconds Blood Pressure Mean: 105 ECG Comment My interpretation of EKG shows sinus rhythm at 72 bpm. Normal intervals. Slight left axis deviation. No ST or T wave abnormalities. No ectopy. No STEMI. Departure Communication (Admissions) Patient is hemodynamically stable. His heart score is 2 based on risk factors. EKG is nonischemic, troponin is negative. Very low risk for ACS and major a dverse cardiac events in the next 30 days. Initial concern for possible DVT in the left arm causing PE and shortness of breath. His D-dimer is negative he has no swelling and is otherwise low risk. No evidence for pneumonia, pneumothorax my direct interpretation of the chest x-ray. He is asymptomatic at present. His electrolytes are unremarkable. Renal function is normal. He is not anemic. No evidence for an acute emergent condition at this time. Impression Primary Impression: Dyspnea on exertion Disposition: HOME, SELF-CARE Condition: Stable Departure-Patient Inst. Referrals: TAYA CALIX MD (PCP/Family) Primary Care Physician Patient Instructions: Shortness of Breath (Dyspnea) (DC) Add. Discharge Instructions: We have screened you for issues with your heart and your lungs. No emergent medical condition has been identified. This may be a viral type illness, and if so, would likely run its course. If you continue to have symptoms after about 10 days you need to follow-up with your primary doctor for further evaluation and treatment recommendations. Return to the emergency department for any severe concerns. All discharge instructions reviewed with patient and/or family. Voiced understanding. ELYSE HAWKINS DO Oct 27, 2022 13:21
[2022-10-27 13:26] LABS: BASOPHILS # (AUTO) 0.1 10^3/uL (0.0-0.1); BASOPHILS % (AUTO) 1 % (0-10); EOSINOPHILS # (AUTO) 0.1 10^3/uL (0.0-0.3); EOSINOPHILS % (AUTO) 1 % (0-10); HEMATOCRIT 47 % (40-54); HEMOGLOBIN 16.4 g/dL (13.3-17.7); LYMPHOCYTES # (AUTO) 2.6 10^3/uL (1.0-4.0); LYMPHOCYTES % (AUTO) 35 % (12-44); MEAN CORPUSCULAR HEMOGLOBIN 32 pg (25-34); MEAN CORPUSCULAR HGB CONC 35 g/dL (32-36); MEAN CORPUSCULAR VOLUME 91 fL (80-99); MEAN PLATELET VOLUME 10.1 fL (9.0-12.2); MONOCYTES # (AUTO) 0.9 10^3/uL (0.0-1.0); MONOCYTES % (AUTO) 12 % (0-12); NEUTROPHILS # (AUTO) 3.8 10^3/uL (1.8-7.8); NEUTROPHILS % (AUTO) 51 % (42-75); PLATELET COUNT 271 10^3/uL (130-400); WHITE BLOOD COUNT 7.5 10^3/uL (4.3-11.0)
[2022-10-27 13:36] LABS: ALBUMIN 4.6 GM/DL (3.2-4.5); CHLORIDE 102 MMOL/L (98-107); POTASSIUM 4.2 MMOL/L (3.6-5.0); SODIUM 140 MMOL/L (135-145)
[2022-10-27 13:38] LABS: CALCIUM 9.6 MG/DL (8.5-10.1)
[2022-10-27 13:39] LABS: GLUCOSE 151 MG/DL (70-105); TOTAL PROTEIN 7.6 GM/DL (6.4-8.2)
[2022-10-27 13:40] LABS: CARBON DIOXIDE 27 MMOL/L (21-32)
[2022-10-27 13:41] LABS: BILIRUBIN,TOTAL 0.5 MG/DL (0.1-1.0)
[2022-10-27 13:42] LABS: ALKALINE PHOSPHATASE 44 U/L (40-136); CREATININE SERUM 0.99 MG/DL (0.60-1.30); GFR ESTIMATED 93
[2022-10-27 13:44] LABS: BUN/CREATININE RATIO 21
[2022-10-27 13:45] LABS: ALANINE AMINOTRANSFERASE 41 U/L (0-55)
--- NOTE | 2022-10-27 13:56 | Diagnostic Imaging Report ---
EXAMINATION: Chest, two views. HISTORY: Dyspnea. COMPARISON: 04/13/2017. FINDINGS: Heart size and pulmonary vasculature are normal. The lungs are clear without consolidation, pleural effusion, or pneumothorax. The osseous structures are intact. IMPRESSION: 1. No acute radiographic abnormality in the chest. Dictated by: Dictated on workstation # [id number]
[2022-10-27 14:12] VITALS: BP 124/75
== END 2022-10-27 14:13 | disposition home or self-care (01) ==
LOC: EDUNIT# 12:58 → ER 13:00
DX: R06.02 Shortness of breath (principal); I10 Essential (primary) hypertension
CPT/HCPCS: 36415; 71046; 80053; 84484; 85025; 85379; 93005